=== PATIENT | male | born 1950 | race Caucasian/White ===

== ENCOUNTER 2020-08-16 08:20 | Outpatient (REF) | payer OTHER, SELFPAY ==
[2020-08-16 11:30] LABS: Glucose Urine UA NEG (NEG); Leukocyte Esterase Urine NEG (NEG); MANUAL DIFF FLAG NO; Nitrite Urine NEG (NEG); PH 5.5 (5.0-8.0); Specific Gravity - Urine 1.025 (1.005-1.025); Urine Blood NEG (NEG); Urine Ketones NEG (NEG); Urine Protein NEG (NEG-TRACE)
[2020-08-16 11:35] LABS: Appearance Urine CLEAR; Color Urine YELLOW
[2020-08-16 11:41] LABS: Basophils Absolute Auto 0.1 X10*3/uL (0.0-0.2); Basophils Percent Auto 1.3 % (0-2); Eosinophils Absolute Auto 0.1 X10*3/uL (0.0-0.4); Eosinophils Percent Auto 1.3 % (0-4); Hematocrit 43.2 % (42-52); Hemoglobin 13.9 g/dl (14.0-18.0); Imm Gran Abs Auto 0.02 X10*3/uL (0.00-0.03); Imm Gran Pct Auto 0.4 % (0.0-0.4); Lymphocytes Absolute Auto 1.6 X10*3/uL (1.2-4.9); Lymphocytes Percent Auto 29.6 % (20-40); Mean Corpuscular HGB Conc 32.2 g/dl (31.0-36.0); Mean Corpuscular Hemoglobin 32.7 pg (27.0-33.0); Mean Corpuscular Volume 101.6 fL (80-98); Mean Platelet Volume 11.7 fL (9.4-12.4); Monocytes Absolute Auto 0.5 X10*3/uL (0.1-1.2); Monocytes Percent Auto 8.8 % (2-11); Neutrophils Absolute Auto 3.2 X10*3/uL (2.0-8.3); Neutrophils Percent Auto 58.6 % (45-73); Platelet Count 185 X10*3/uL (160-400); Red Blood Count 4.25 X10*6/uL (4.60-5.80); Red Cell Distribution Width 12.2 % (11.0-16.0); White Blood Count 5.5 X10*3/uL (4.8-10.8)
[2020-08-16 11:51] LABS: Mucus Urine 2+ /LPF; RBC Urine 0-2 /HPF (0); WBC Urine 0-2 /HPF (0-4)
[2020-08-16 11:54] LABS: Alanine Aminotransferase 21 U/L (0-40); Albumin Level 4.9 g/dL (3.5-5.0); Alkaline Phosphatase 77 U/L (39-117); Anion Gap 15 (12-20); Aspartate Amino Transferase 24 U/L (5-37); Bilirubin Total 0.8 mg/dL (0.0-1.0); Blood Urea Nitrogen 13 mg/dL (9-16); Calcium 9.4 mg/dL (8.4-10.2); Carbon Dioxide 27 mmol/L (22-29); Chloride 103 mmol/L (96-108); Cholesterol 186 mg/dL; Estimated Glomerular Filt Rate > 60; Glucose Fasting 101 mg/dL (60-99); HDL Cholesterol 57 mg/dL; LDL Cholesterol Calculated 115 mg/dl; Potassium 4.5 mmol/l (3.3-5.1); Sodium 140 mmol/L (135-145); Total Protein 7.8 g/dL (6.5-8.0); Triglycerides 72 mg/dL
[2020-08-16 12:17] LABS: Prostate Specific Antigen 0.45 ng/mL (<0.05-4.0); Thyroid Stimulating Hormone 2.07 mIU/mL (0.32-4.0); Vitamin D 25-OH Total 44.8 ng/mL (>30)
== END 2020-08-16 08:21 | disposition home or self-care (01) ==
LOC: HO.HMGCLDS 08:20
PROVIDERS: PCP Internal Medicine; Visit Provider Internal Medicine
DX: Z00.00 Encounter for general adult medical examination without abnormal findings (principal); I10 Essential (primary) hypertension; I47.1 Supraventricular tachycardia; E78.00 Pure hypercholesterolemia, unspecified
CPT/HCPCS: 36415; 80053; 80061; 81001; 82306; 84153; 84443; 85025

== ENCOUNTER 2020-11-28 11:24 | Day surgery (SDC) | payer OTHER, SELFPAY ==
[2020-11-22 13:58] VITALS: BMI 25.9
--- NOTE | 2020-11-24 13:40 | P.CONAN_ITS ---
Documented by User: Jenna Lenka 11/24/20 13:48 HPI - Anesthesia Eval Consult details Narrative: 69yo M for Colonoscopy [facility] Past Medical History Medical History Arrhythmia Elevated cholesterol HTN (hypertension) Legally blind Macular degeneration Urinary frequency Surgical History Surgical History H/O colonoscopy Social History Social History Are you a primary care assistant to a significant other at home: No Do you presently have visiting nurse or other home services: No Smoking Status: Former smoker Smoked in Last 30 Days: No Smoking Quit Date: 1994 Use of substances other than those prescribed or required for medical reasons: No Have you been hit, kicked, punched, or otherwise hurt by someone within the past year? If so, by whom?: No Advance Directives Information Provided: No Recently lost weight without trying: No Meds Allergies Allergy/AdvReac Type Severity Reaction Status Date / Time No Known Allergies Allergy Unverified 07/07/20 14:35 Home Medications Medication Instructions Recorded Confirmed Type aspirin 81 mg PO DAILY 11/22/20 11/22/20 History atenolol 1 tab PO BEDTIME 11/22/20 11/22/20 History lisinopril 1 tab PO DAILY 11/22/20 11/22/20 History geiflsxm-cot-BK-lycopen-lutein 1 tab PO DAILY 11/22/20 11/22/20 History [Centrum Silver Men] pravastatin 1 tab PO BEDTIME 11/22/20 11/22/20 History Exam Exam Date and Time: November 24, 2020 1340 Height,Weight and Vital Signs: Height 5 ft 8 in Weight 77.564 kg Pertinent Lab Results Pertinent Lab Results: Laboratory Tests 08/16/20 08/16/20 08:30 08:30 WBC 5.5 Hgb 13.9 L Hct 43.2 Plt Count 185 Sodium 140 Potassium 4.5 Chloride 103 Carbon Dioxide 27 BUN 13 Creatinine 1.18 Assessment and Plan Assessment Anesthesia Assessment: Chart Reviewed Documented by User: Talha Joyner MD 11/28/20 13:04 [facility] Past Medical History Medical History Arrhythmia Elevated cholesterol HTN (hypertension) Legally blind Macular degeneration Urinary frequency Surgical History Surgical History H/O colonoscopy Social History Social History Are you a primary care assistant to a significant other at home: No Do you presently have visiting nurse or other home services: No Smoking Status: Former smoker Smoked in Last 30 Days: No Smoking Quit Date: 1994 Use of substances other than those prescribed or required for medical reasons: No Have you been hit, kicked, punched, or otherwise hurt by someone within the past year? If so, by whom?: No Advance Directives Information Provided: No Recently lost weight without trying: No Meds Allergies Allergy/AdvReac Type Severity Reaction Status Date / Time No Known Allergies Allergy Unverified 07/07/20 14:35 Home Medications Medication Instructions Recorded Confirmed Type aspirin 81 mg PO DAILY 11/22/20 11/22/20 History atenolol 1 tab PO BEDTIME 11/22/20 11/22/20 History lisinopril 1 tab PO DAILY 11/22/20 11/22/20 History efhoqqqo-rkv-UJ-lycopen-lutein 1 tab PO DAILY 11/22/20 11/22/20 History [Centrum Silver Men] pravastatin 1 tab PO BEDTIME 11/22/20 11/22/20 History Exam Airway Mallampati Class: II TM Dist: >3cm Neck ROM: Full Loose/Missing/Broken Teeth: No Heart: RRR Lungs: NL Assessment and Plan Assessment Anesthesia Assessment: Anesthesia Plan Discussed and Chart Reviewed Final Anesthetic Review NPO: Yes ASA Class: II Final Preanesthetic Review: No Changes in Pt Med Stat, Meds/Allgs Chart Reviewed, Consent Obtained/Reviewed and Anes Risks/Benef Reviewed Patient Risk: Intermediate Procedure Risk: Low Anesthetic Plan Anesthetic Plan: MAC: Disposition: Standard PACU
[2020-11-28 12:34] VITALS: BP 149/72; PULSE 72; RESP 16; TEMP 36.6; O2SAT 99
[2020-11-28] MEDS: Lactated Ringers 1,000 ML 100 ML IVCONT (12:39)
[2020-11-28 13:51] VITALS: BP 111/53; PULSE 75; RESP 20; TEMP 36.3; O2SAT 98
--- NOTE | 2020-11-28 13:53 | PM.OP ---
Brief Operative Note Date of Service: 11/28/20 Pre-op diagnosis: Screening Post-op diagnosis: other (Diverticulosis, Internal hemorrhoids) Procedure: Colonoscopy to the cecum Surgeon: Marques Baez Anesthesia: MAC Estimated blood loss (mL): 0 Pathology: none sent Condition: stable Disposition: PACU
[2020-11-28 14:06] VITALS: BP 122/63; PULSE 69; RESP 17; TEMP 36.3; O2SAT 98
--- NOTE | 2020-11-28 14:07 | OP_ITS ---
SURGEON: Marques Baez MD INDICATIONS: The patient presents for evaluation of colorectal cancer screening. Full consent has been obtained from him for this, including risks of bleeding and perforation. PREOPERATIVE DIAGNOSIS: Colorectal cancer screening. POSTOPERATIVE DIAGNOSIS: PROCEDURE PERFORMED: Colonoscopy to cecum. ESTIMATED BLOOD LOSS: COMPLICATIONS: ANESTHESIA: Monitored anesthesia care. ASSISTANTS: SPECIMENS: POSTOPERATIVE DIAGNOSES: Colorectal cancer screening, sigmoid diverticulosis and internal hemorrhoids. DESCRIPTION OF PROCEDURE: The patient was placed in the left lateral decubitus position. The digital rectal exam revealed no abnormalities. The Olympus video pediatric colonoscope was entered into the rectum and advanced easily to the cecum. Once in the cecum, I did identify normal-appearing cecal pouch with appendiceal orifice and a normal-appearing ileocecal valve. The entire cecum and ileocecal valve appeared normal. There was transillumination of light deep in the right lower quadrant. The scope was slowly withdrawn assessing all mucosal surfaces carefully. Preparation was excellent. I did not visualize any sign of polyps, colitis, nor angiodysplasia. There was a moderate amount of sigmoid diverticulosis. In the rectum, scope was retroflexed visualizing small internal hemorrhoids, but no other pathology. The rectal mucosa appeared normal. The scope was straightened out and withdrawn from the patient. He tolerated the procedure well and was returned to the recovery area in stable condition. IMPRESSION: 1. Diverticulosis. 2. Internal hemorrhoids. PLAN: Given the patient's negative colonoscopy, negative exam in 2010, and no family history of colon cancer, I do not think he will need any further screening colonoscopies in the future. He will otherwise see me on a p.r.n. basis. Marques Baez MD RMW/GONZALOL / [id number]
--- NOTE | 2020-11-28 14:28 | HO.POSTANES ---
Post Anesthesia Evaluation Post Anesthesia Evaluation Vital Signs: Vital Signs Temp Pulse Resp BP Pulse Ox 11/28/20 14:06 97.4 F 69 17 122/63 98 11/28/20 13:51 97.4 F 75 20 111/53 L 98 11/28/20 12:34 97.9 F 72 16 149/72 H 99 Anesthesia: TIVA Mental Status: Awake Pain Control: Satisfactory Nausea/Vomiting: None Hydration: Adequate Anesthesia-Related Issues: No Anes. Related Issues
== END 2020-11-28 14:31 | disposition home or self-care (01) ==
PROVIDERS: PCP Internal Medicine; Visit Provider Internal Medicine
PROC: 0DJD8ZZ Inspection of Lower Intestinal Tract, Via Natural or Artificial Opening Endoscopic (ICD-10-PCS; CPT 45378; principal; 2020-11-28 13:20)
DX: Z12.11 Encounter for screening for malignant neoplasm of colon (principal); K57.30 Diverticulosis of large intestine without perforation or abscess without bleeding; K64.8 Other hemorrhoids; I10 Essential (primary) hypertension; H54.8 Legal blindness, as defined in USA; Z79.899 Other long term (current) drug therapy
CPT/HCPCS: 45378

== ENCOUNTER 2021-09-05 09:35 | Outpatient (REF) | payer OTHER, SELFPAY ==
[2021-09-05 11:48] LABS: MANUAL DIFF FLAG NO
[2021-09-05 11:50] LABS: Appearance Urine CLEAR; Color Urine YELLOW; Glucose Urine UA NEG (NEG); Leukocyte Esterase Urine NEG (NEG); Nitrite Urine NEG (NEG); Urine Blood NEG (NEG); Urine Ketones NEG (NEG); Urine Protein NEG (NEG-TRACE)
[2021-09-05 11:52] LABS: Basophils Absolute Auto 0.1 X10*3/uL (0.0-0.2); Basophils Percent Auto 1.7 % (0-2); Eosinophils Absolute Auto 0.1 X10*3/uL (0.0-0.4); Eosinophils Percent Auto 1.7 % (0-4); Hematocrit 40.4 % (42.0-52.0); Hemoglobin 13.3 g/dl (14.0-18.0); Imm Gran Abs Auto 0.02 X10*3/uL (0.00-0.03); Imm Gran Pct Auto 0.4 % (0.0-0.4); Lymphocytes Absolute Auto 1.7 X10*3/uL (1.2-4.9); Lymphocytes Percent Auto 35.3 % (20-40); Mean Corpuscular HGB Conc 32.9 g/dl (31.0-36.0); Mean Corpuscular Hemoglobin 32.8 pg (27.0-33.0); Mean Corpuscular Volume 99.5 fL (80.0-98.0); Monocytes Absolute Auto 0.3 X10*3/uL (0.1-1.2); Monocytes Percent Auto 6.9 % (2-11); Neutrophils Absolute Auto 2.6 x10*3/uL (2.0-8.3); Platelet Count 149 X10*3/uL (160-400); Red Blood Count 4.06 X10*6/uL (4.60-5.80); Red Cell Distribution Width 12.1 % (11.0-16.0); White Blood Count 4.8 X10*3/uL (4.8-10.8)
[2021-09-05 12:15] LABS: Alanine Aminotransferase 25 U/L (0-40); Albumin Level 4.6 g/dL (3.5-5.0); Alkaline Phosphatase 76 U/L (39-117); Anion Gap 15 (12-20); Aspartate Amino Transferase 24 U/L (5-37); Bilirubin Total 0.7 mg/dL (0.0-1.0); Blood Urea Nitrogen 17 mg/dL (9-16); Calcium 9.5 mg/dL (8.4-10.2); Carbon Dioxide 26 mmol/L (22-29); Chloride 105 mmol/L (96-108); Cholesterol 192 mg/dL; Estimated Glomerular Filt Rate > 60; Glucose Fasting 90 mg/dL (60-99); HDL Cholesterol 51 mg/dL; LDL Cholesterol Calculated 126 mg/dl; Potassium 4.8 mmol/L (3.3-5.1); Sodium 141 mmol/L (135-145); Total Protein 7.7 g/dL (6.5-8.0); Triglycerides 76 mg/dL
[2021-09-05 12:38] LABS: PSA,Total (Free>4and<10) 0.47 ng/mL (0.00-4.00); Thyroid Stimulating Hormone 2.55 uIU/mL (0.32-4.0); Vitamin D 25-OH Total 43.4 ng/mL (>30)
[2021-09-05 12:39] LABS: Mucus Urine 1+ /LPF; RBC Urine 0 /HPF (0); WBC Urine 0-2 /HPF (0-4)
== END 2021-09-05 09:36 | disposition home or self-care (01) ==
LOC: HO.HMGCLDS 09:35
PROVIDERS: PCP Internal Medicine; Visit Provider Internal Medicine
DX: Z00.00 Encounter for general adult medical examination without abnormal findings (principal); Z12.5 Encounter for screening for malignant neoplasm of prostate; I10 Essential (primary) hypertension; I47.1 Supraventricular tachycardia; E78.00 Pure hypercholesterolemia, unspecified
CPT/HCPCS: 36415; 80053; 80061; 81001; 82306; 84153; 84443; 85025

== ENCOUNTER 2021-12-13 09:15 | Outpatient (REF) | payer OTHER, SELFPAY ==
[2021-12-13 11:13] LABS: MANUAL DIFF FLAG NO
[2021-12-13 11:16] LABS: Basophils Absolute Auto 0.1 X10*3/uL (0.0-0.2); Eosinophils Absolute Auto 0.1 X10*3/uL (0.0-0.4); Eosinophils Percent Auto 1.2 % (0-4); Hematocrit 42.1 % (42.0-52.0); Hemoglobin 13.6 g/dl (14.0-18.0); Imm Gran Abs Auto 0.02 X10*3/uL (0.00-0.03); Imm Gran Pct Auto 0.3 % (0.0-0.4); Lymphocytes Absolute Auto 1.9 X10*3/uL (1.2-4.9); Lymphocytes Percent Auto 31.9 % (20-40); Mean Corpuscular HGB Conc 32.3 g/dl (31.0-36.0); Mean Corpuscular Hemoglobin 32.6 pg (27.0-33.0); Mean Platelet Volume 11.1 fL (9.4-12.4); Monocytes Absolute Auto 0.4 X10*3/uL (0.1-1.2); Neutrophils Absolute Auto 3.5 x10*3/uL (2.0-8.3); Neutrophils Percent Auto 58.6 % (45-73); Platelet Count 192 X10*3/uL (160-400); Red Blood Count 4.17 X10*6/uL (4.60-5.80)
== END 2021-12-13 09:16 | disposition home or self-care (01) ==
LOC: HO.HMGCLDS 09:15
PROVIDERS: Visit Provider Internal Medicine
DX: Z00.00 Encounter for general adult medical examination without abnormal findings (principal); I10 Essential (primary) hypertension; I47.1 Supraventricular tachycardia
CPT/HCPCS: 36415; 85025

== ENCOUNTER 2022-04-02 16:14 | Emergency (ER) | payer OTHER, SELFPAY ==
--- NOTE | ~2022-04-02 | XR_ITS ---
EXAMINATION: XR CHEST CLINICAL INFORMATION: Chest pain COMPARISON: Chest x-ray 09/04/2009 TECHNIQUE: Frontal view of the chest was obtained. FINDINGS: Mild curvilinear streaky opacities at the right lung base compatible with mild subsegmental atelectasis or scarring. No airspace consolidation. No pleural effusion or pneumothorax. Cardiomediastinal silhouette is within normal limits as is the pulmonary vascularity. No acute osseous injury is identified. XR/XR chest 1V IMPRESSION: No acute pulmonary process.
[2022-04-02 16:24] VITALS: BP 192/84; BP 208/90; PULSE 68; PULSE 80; RESP 16; TEMP 37; O2SAT 97; BMI 27.3
--- NOTE | 2022-04-02 16:27 | ECG_ITS ---
Test Reason : PALPITATIONS Blood Pressure : / mmHG Vent. Rate : 059 BPM Atrial Rate : 059 BPM P-R Int : 172 ms QRS Dur : 086 ms QT Int : 444 ms P-R-T Axes : 025 -11 026 degrees QTc Int : 439 ms Sinus bradycardia Otherwise normal ECG When compared with ECG of 04-SEP-2009 18:23, Vent. rate has decreased BY 30 BPM Referred By: Zelda Foster Electronically Signed By:Amado Dumont
--- NOTE | 2022-04-02 16:34 | ED_ITS ---
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 He tells me that this did not feel like his typical episode of SVT, he tells me it felt different. He tells me he was just sitting down relaxing when this started, denies history of anxiety are any stressful situations at this time. When patient got to Urgent Care he was noted to have a low heart rate, and have an irregular and slow rate, fluctuating anywhere between 38-44 beats per minute. Because of this patient was advised to present to the emergency department. At this time patient is not complaining of any symptoms d enies chest pain, shortness of breath, nausea, vomiting, headache, dizziness, weakness, upper respiratory symptoms. No history of DVT or PE. No significant cardiac history. MD complaint: heart racing , skipped beats , palpitations and irregular heart beat Onset (ago): day(s) (1) Duration: constant Severity: moderate Context: occurred during rest Arrhythmia history: SVT Associated symptoms: denies other symptoms Related Data Home Medications Medication Instructions Recorded Confirmed aspirin 81 mg tablet 81 mg PO DAILY 11/22/20 11/22/20 atenolol 50 mg tablet 1 tab PO BEDTIME 11/22/20 11/22/20 qrgqophv-mmo-esgka acid 300 1 tab PO DAILY 11/22/20 11/22/20 mcg-lycopene 600 mcg-lutein 300 mcg tablet (Centrum Silver Men) pravastatin 20 mg tablet 1 tab PO BEDTIME 11/22/20 11/22/20 azithromycin 250 mg capsule mg PO 03/16/22 lisinopril 10 mg tablet 10 mg PO DAILY 03/16/22 Allergies Allergy/AdvReac Type Severity Reaction Status Date / Time No Known Allergies Allergy Unverified 03/16/22 09:20 Review of Systems Review of Systems: Constitutional : No Weight loss, No Fever, No Chills, No Fatigue, No Malaise ENT/Mouth : No sore throat, No Rhinorrhea Eyes: No Eye Pain, No Swelling, No Redness Cardiovascular : No Chest Pain, No SOB, No Dyspnea on Exertion, No Orthopnea, No Edema, No Palpitations Respiratory : No Cough, No Sputum, No Wheezing Gastrointestinal : No Nausea, No Vomiting, No Diarrhea, No Constipation, No abdominal Pain, No Hematochezia, No Melena Genitourinary : No Dysuria, No Urinary Frequency, No Hematuria, Musculoskeletal : No joint pain, No Myalgias, No Joint Swelling Skin : No Skin Lesions, No rash Neuro : No Weakness, No Numbness, No Dizziness, No Headache Psych : No Anxiety/Panic, No Depression All other systems reviewed and are negative Yes all other systems are reviewed and are negative [facility]LY [facility] Past Medical History Attestation statement: The following information was validated with the patient. Source: old records reviewed and nursing notes reviewed Medical History Arrhythmia Elevated cholesterol HTN (hypertension) Legally blind Macular degeneration Urinary frequency Surgical History H/O colonoscopy Social History Social History Are you a primary personal care aid to a significant other at home: No Do you presently have visiting nurse or other home services: No Smoked in Last 30 Days: No Use of substances other than those prescribed or required for medical reasons: No Advance Directives: No Advance Directives Information Provided: Yes Physical Exam Vital Signs: Vital Signs: Last Vital Signs Temp 98.6 F 04/02/22 16:24 Pulse 70 04/02/22 21:01 Resp 12 04/02/22 21:01 BP 129/87 04/02/22 21:01 Pulse Ox 94 04/02/22 21:01 O2 Del Method 04/02/22 21:01 BMI result Body Mass Index 27.3 Vital signs with the slightly elevated blood pressure. Appearance: Alert.? Oriented X3.? No acute distress.? Head: Normocephalic, atraumatic, no step-offs or deformities Eyes: Pupils equal, round and reactive to light.? ENT: Pharynx normal.? Neck: Normal inspection.? Neck supple.? CVS: Normal heart rate and irregular rhythm.? Pulses normal.? Respiratory: No respiratory distress.? Breath sounds normal.? Abdomen: Soft and nontender.? Skin: Skin warm and dry.? Normal skin color.? Normal skin turgor.? Extremities: No lower extremity edema.? No calf ttp. 5/5 strength to bilateral upper and lower extremities Back: No midline tenderness, no C-spine tenderness, full range of motion, no CVA tenderness bilaterally Neuro: Oriented X 3.? No motor deficit.? No sensory deficit. CN 2-12 intact. Ambulating w/ steady gait. Course Reevaluation(s) Reevaluation #1: CBC appears to be around patient's baseline. He is noted to have slightly low platelets however they have been this way in the past. Chemistry with no acute electrolyte abnormalities that require intervention at this time. Patient's BNP 196, troponin 5.8 EKG shows sinus bradycardia with no signs of acute ischemia. Patient still complaining of palpitations, an irregular heart rate, 2nd troponin will be obtained in 3 hours. D-dimer negative, unlikely PE. Chest x-ray with no acute pulmonary process is seen. Time: 18:03 Reevaluation #2: No significant findings on bladder scan. Post ambulatory ekg with sinus rythem, occasional PVCs. Patient feeling better. Discuss this case with my attending Dr Coleen Diallo who recommends that patient cut his atenolol dose in half due to bradycardia which seem to be symptomatic, and for him to follow-up with PCP/cardiology as soon as possible within the next 1-3 days. Patient tells me that he is feeling much better, no longer having chest pressure, shortness of breath, palpitations. At this time he is in normal sinus rhythm on the monitor while sleeping with a heart rate of 59. Saturating well on room air. Appears comfortable and in no acute distress. Plan at this time is to discharge patient home patient likely had symptomatic bradycardia, no signs of ACS, no longer experiencing symptoms, D-dimer negative unlikely PE. An chest x-ray was negative no signs of CHF. Patient will be discharged home with Cardiology and PCP follow-up. Comfortable discharge. Time: 22:38 MDM - Arrhythmia/Palpitations MDM Narrative Medical decision making narrative: [id number] 71-year-old male history of hypertension, SVT, legally blind presents to the emergency department via ambulance from Urgent Care with complaints of palpitations, at urgent care he was found to be bradycardic, with an irregular rhythm. No complaints at this time. Physical examination significant for an irregular rhythm on exam rate in the 60s. Lungs clear. Abdomen soft nontender nondistended. Negative Edi no lower extremity edema. Neuro exam nonfocal. Plan at this time is chest x-ray, troponin, D-dimer, basic labs, urine. Patient is on a teletypesetter monitor he noted to have bigeminy is upon his arrival with a rate in the 60s, 70s. Medical Records Attestation: I reviewed the patient's medical records. Lab Data Attestation: I reviewed the patient's lab results. Result diagrams: 04/02/22 17:25 04/02/22 20:54 Labs: Lab Results 04/02/22 04/02/22 04/02/22 Range/Units 16:32 17:23 17:25 WBC 8.2 (4.8-10.8) X10*3/uL RBC 3.89 L (4.60-5.80) X10*6/uL Hgb 12.8 L (14.0-18.0) g/dl Hct 38.1 L (42.0-52.0) % MCV 97.9 (80.0-98.0) fL MCH 32.9 (27.0-33.0) pg MCHC 33.6 (31.0-36.0) g/dl RDW 12.0 (11.0-16.0) % Plt Count 154 L (160-400) X10*3/uL MPV 11.2 (9.4-12.4) fL Immature Gran % (Auto) 0.4 (0.0-0.4) % Neut % (Auto) 82.3 H (45-73) % Lymph % (Auto) 11.7 L (20-40) % [place] % (Auto) 4.5 (2-11) % Eos % (Auto) 0.4 (0-4) % Baso % (Auto) 0.7 (0-2) % Lymph # (Auto) 1.0 L (1.2-4.9) X10*3/uL [place] # (Auto) 0.4 (0.1-1.2) X10*3/uL Eos # (Auto) 0.0 (0.0-0.4) X10*3/uL Baso # (Auto) 0.1 (0.0-0.2) X10*3/uL Abs Immat Gran (auto) 0.03 (0.00-0.03) X10*3/uL Absolute Neuts (auto) 6.8 (2.0-8.3) x10*3/uL Absolute Nucleated RBC 0.000 (0.0-0.012) X10*3/uL Nucleated RBC % (auto) 0.0 (0.0-0.2) /100WBC D-Dimer High Sensitivty NG/ML Sodium (135-145) mmol/L Potassium (3.3-5.1) mmol/L Chloride (96-108) mmol/L Carbon Dioxide (22-29) mmol/L Anion Gap (12-20) BUN (9-16) mg/dL Creatinine (0.5-1.4) mg/dL Estim Creat Clear Calc Estimated GFR Random Glucose (60-115) mg/dL Calcium (8.4-10.2) mg/dL Magnesium (1.6-2.6) mg/dL Total Bilirubin (0.0-1.0) mg/dL AST (5-37) U/L ALT (0-40) U/L Alkaline Phosphatase (39-117) U/L Troponin I High Sens (<3.5-35.0) ng/L B-Natriuretic Peptide (<100) pg/mL Total Protein (6.5-8.0) g/dL Albumin (3.5-5.0) g/dL Urine Color YELLOW Urine Appearance CLEAR Urine pH 6.0 (5.0-8.0) Ur Specific [place] 1.010 (1.005-1.025) Urine Protein NEG (NEG-TRACE) MG/DL Urine Glucose (UA) NEG (NEG) MG/DL Urine Ketones NEG (NEG) MG/DL Urine Blood NEG (NEG) Urine Nitrite NEG (NEG) Ur Leukocyte Esterase NEG (NEG) COVID-19 (RON) Negative (Negative) COVID-19 Clin Com See Note 04/02/22 04/02/22 04/02/22 Range/Units 17:25 17:25 17:25 WBC (4.8-10.8) X10*3/uL RBC (4.60-5.80) X10*6/uL Hgb (14.0-18.0) g/dl Hct (42.0-52.0) % MCV (80.0-98.0) fL MCH (27.0-33.0) pg MCHC (31.0-36.0) g/dl RDW (11.0-16.0) % Plt Count (160-400) X10*3/uL MPV (9.4-12.4) fL Immature Gran % (Auto) (0.0-0.4) % Neut % (Auto) (45-73) % Lymph % (Auto) (20-40) % [place] % (Auto) (2-11) % Eos % (Auto) (0-4) % Baso % (Auto) (0-2) % Lymph # (Auto) (1.2-4.9) X10*3/uL [place] # (Auto) (0.1-1.2) X10*3/uL Eos # (Auto) (0.0-0.4) X10*3/uL Baso # (Auto) (0.0-0.2) X10*3/uL Abs Immat Gran (auto) (0.00-0.03) X10*3/uL Absolute Neuts (auto) (2.0-8.3) x10*3/uL Absolute Nucleated RBC (0.0-0.012) X10*3/uL Nucleated RBC % (auto) (0.0-0.2) /100WBC D-Dimer High Sensitivty < 150 NG/ML Sodium 139 (135-145) mmol/L Potassium 4.3 (3.3-5.1) mmol/L Chloride 107 (96-108) mmol/L Carbon Dioxide 23 (22-29) mmol/L Anion Gap 13 (12-20) BUN 18 H (9-16) mg/dL Creatinine 1.15 (0.5-1.4) mg/dL Estim Creat Clear Calc 55.3 Estimated GFR > 60 Random Glucose 110 (60-115) mg/dL Calcium 9.3 (8.4-10.2) mg/dL Magnesium 2.4 (1.6-2.6) mg/dL Total Bilirubin 0.6 (0.0-1.0) mg/dL AST 21 (5-37) U/L ALT 17 (0-40) U/L Alkaline Phosphatase 94 D (39-117) U/L Troponin I High Sens 5.8 (<3.5-35.0) ng/L B-Natriuretic Peptide 196 H (<100) pg/mL Total Protein 7.2 (6.5-8.0) g/dL Albumin 4.3 (3.5-5.0) g/dL Urine Color Urine Appearance Urine pH (5.0-8.0) Ur Specific [place] (1.005-1.025) Urine Protein (NEG-TRACE) MG/DL Urine Glucose (UA) (NEG) MG/DL Urine Ketones (NEG) MG/DL Urine Blood (NEG) Urine Nitrite (NEG) Ur Leukocyte Esterase (NEG) COVID-19 (RON) (Negative) COVID-19 Clin Com 04/02/22 04/02/22 Range/Units 20:54 20:54 WBC (4.8-10.8) X10*3/uL RBC (4.60-5.80) X10*6/uL Hgb (14.0-18.0) g/dl Hct (42.0-52.0) % MCV (80.0-98.0) fL MCH (27.0-33.0) pg MCHC (31.0-36.0) g/dl RDW (11.0-16.0) % Plt Count (160-400) X10*3/uL MPV (9.4-12.4) fL Immature Gran % (Auto) (0.0-0.4) % Neut % (Auto) (45-73) % Lymph % (Auto) (20-40) % [place] % (Auto) (2-11) % Eos % (Auto) (0-4) % Baso % (Auto) (0-2) % Lymph # (Auto) (1.2-4.9) X10*3/uL [place] # (Auto) (0.1-1.2) X10*3/uL Eos # (Auto) (0.0-0.4) X10*3/uL Baso # (Auto) (0.0-0.2) X10*3/uL Abs Immat Gran (auto) (0.00-0.03) X10*3/uL Absolute Neuts (auto) (2.0-8.3) x10*3/uL Absolute Nucleated RBC (0.0-0.012) X10*3/uL Nucleated RBC % (auto) (0.0-0.2) /100WBC D-Dimer High Sensitivty NG/ML Sodium 139 (135-145) mmol/L Potassium 4.1 (3.3-5.1) mmol/L Chloride 107 (96-108) mmol/L Carbon Dioxide 24 (22-29) mmol/L Anion Gap 12 (12-20) BUN 16 (9-16) mg/dL Creatinine 1.15 (0.5-1.4) mg/dL Estim Creat Clear Calc 55.3 Estimated GFR > 60 Random Glucose 108 (60-115) mg/dL Calcium 9.5 (8.4-10.2) mg/dL Magnesium (1.6-2.6) mg/dL Total Bilirubin 0.6 (0.0-1.0) mg/dL AST 22 (5-37) U/L ALT 18 (0-40) U/L Alkaline Phosphatase 89 (39-117) U/L Troponin I High Sens 9.9 D (<3.5-35.0) ng/L B-Natriuretic Peptide (<100) pg/mL Total Protein 7.6 (6.5-8.0) g/dL Albumin 4.5 (3.5-5.0) g/dL Urine Color Urine Appearance Urine pH (5.0-8.0) Ur Specific [place] (1.005-1.025) Urine Protein (NEG-TRACE) MG/DL Urine Glucose (UA) (NEG) MG/DL Urine Ketones (NEG) MG/DL Urine Blood (NEG) Urine Nitrite (NEG) Ur Leukocyte Esterase (NEG) COVID-19 (RON) (Negative) COVID-19 Clin Com ECG Data Attestation: I personally reviewed and interpreted this ECG as follows: ECG interpretation date: 04/02/22 ECG interpretation time: 17:37 Prior ECG tracings: not available for review Interpretation: Ventricular rate of 59, TX normal, QRS normal, QT/QTC normal, EKG shows sinus bradycardia no ST elevations or inversions concerning for ischemia. No previous EKGs to compare with. Critical Care Time Critical Care Time Critical Care Time: No Discharge Plan Discharge Clinical Impression: Bradycardia, sinus, Palpitations, PVC (premature ventricular contraction) Patient Disposition: Home, Self-Care Instructions: Bradycardia (ED) Additional Instructions: Take your medications as prescribed. If you were prescribed antibiotics today, it is important that you take your medication to their entirety, do not skip any doses, do not finish them early. Follow-up with your primary care provider this week. Return to the emergency department with new or worsening symptoms. Such as fevers, chills, chest pain, shortness of breath, nausea, vomiting, dizziness, headache, vision changes, lethargy In case of emergency call 911 I recommend that you take 25 mg of atenolol instead of 50mg, cut the tablet in half. Please follow-up with your PCP and Cardiology within the next week or sooner if possible. Return with new or worsening symptoms. Today in the emergency department your labs, imaging and EKG were reassuring. Feel better! Prescriptions: No Action aspirin 81 mg Tablet 81 mg PO DAILY pravastatin 20 mg tablet 1 tab PO BEDTIME atenolol 50 mg tablet 1 tab PO BEDTIME Centrum Silver Men 300-600-300 mcg Tablet 1 tab PO DAILY lisinopril 10 mg tablet 10 mg PO DAILY azithromycin 250 mg capsule PO Referrals: Marques Hlil DO [Primary Care Provider] - 2 days Amado Dumont MD [Physician] - 1 week
[2022-04-02 16:41] LABS: Appearance Urine CLEAR; Color Urine YELLOW; Glucose Urine UA NEG (NEG); Leukocyte Esterase Urine NEG (NEG); Nitrite Urine NEG (NEG); Urine Blood NEG (NEG); Urine Ketones NEG (NEG); Urine Protein NEG (NEG-TRACE)
[2022-04-02 17:20] VITALS: BP 144/77; PULSE 60; RESP 14
[2022-04-02 17:30] LABS: MANUAL DIFF FLAG NO
[2022-04-02 17:35] LABS: Basophils Absolute Auto 0.1 X10*3/uL (0.0-0.2); Basophils Percent Auto 0.7 % (0-2); Eosinophils Percent Auto 0.4 % (0-4); Hematocrit 38.1 % (42.0-52.0); Hemoglobin 12.8 g/dl (14.0-18.0); Imm Gran Abs Auto 0.03 X10*3/uL (0.00-0.03); Imm Gran Pct Auto 0.4 % (0.0-0.4); Lymphocytes Percent Auto 11.7 % (20-40); Mean Corpuscular HGB Conc 33.6 g/dl (31.0-36.0); Mean Corpuscular Hemoglobin 32.9 pg (27.0-33.0); Mean Corpuscular Volume 97.9 fL (80.0-98.0); Mean Platelet Volume 11.2 fL (9.4-12.4); Monocytes Absolute Auto 0.4 X10*3/uL (0.1-1.2); Monocytes Percent Auto 4.5 % (2-11); Neutrophils Absolute Auto 6.8 x10*3/uL (2.0-8.3); Neutrophils Percent Auto 82.3 % (45-73); Platelet Count 154 X10*3/uL (160-400); Red Blood Count 3.89 X10*6/uL (4.60-5.80); White Blood Count 8.2 X10*3/uL (4.8-10.8)
[2022-04-02 17:43] LABS: D Dimer High Sensitivity < 150 NG/ML
[2022-04-02 17:50] LABS: Alanine Aminotransferase 17 U/L (0-40); Albumin Level 4.3 g/dL (3.5-5.0); Alkaline Phosphatase 94 U/L (39-117); Anion Gap 13 (12-20); Aspartate Amino Transferase 21 U/L (5-37); Bilirubin Total 0.6 mg/dL (0.0-1.0); Blood Urea Nitrogen 18 mg/dL (9-16); Calcium 9.3 mg/dL (8.4-10.2); Carbon Dioxide 23 mmol/L (22-29); Chloride 107 mmol/L (96-108); Creatinine Clr Calc Pharmacy 55.3; Estimated Glomerular Filt Rate > 60; Glucose Random 110 mg/dL (60-115); Magnesium 2.4 mg/dL (1.6-2.6); Potassium 4.3 mmol/L (3.3-5.1); Sodium 139 mmol/L (135-145); Total Protein 7.2 g/dL (6.5-8.0)
[2022-04-02 17:54] LABS: COVID-19 Test Negative (Negative); IDNOW Serial# 16C4AD1C
[2022-04-02 17:57] LABS: B Type Natriuretic Peptide 196 pg/mL (<100); Troponin-I High Sensitivity 5.8 ng/L (<3.5-35.0)
[2022-04-02 18:59] VITALS: BP 185/78
[2022-04-02] MEDS: Furosemide 20 MG/2 ML VIAL 10 MG IVPUSH (18:59)
--- NOTE | 2022-04-02 20:53 | ECG_ITS ---
Test Reason : REPEAT PALPITATIONS Blood Pressure : / mmHG Vent. Rate : 061 BPM Atrial Rate : 061 BPM P-R Int : 170 ms QRS Dur : 088 ms QT Int : 446 ms P-R-T Axes : 044 012 029 degrees QTc Int : 448 ms Sinus rhythm with occasional Premature ventricular complexes Otherwise normal ECG When compared with ECG of 02-APR-2022 17:24, Premature ventricular complexes are now Present Referred By: Zelda Foster Electronically Signed By:Amado Dumont
[2022-04-02 20:57] VITALS: BP 164/85; BP 183/89; PULSE 55; PULSE 68
[2022-04-02 21:00] VITALS: BP 150/115; PULSE 65
[2022-04-02 21:01] VITALS: BP 129/87; PULSE 70; RESP 12; O2SAT 94
[2022-04-02 21:13] LABS: Alanine Aminotransferase 18 U/L (0-40); Albumin Level 4.5 g/dL (3.5-5.0); Alkaline Phosphatase 89 U/L (39-117); Anion Gap 12 (12-20); Aspartate Amino Transferase 22 U/L (5-37); Bilirubin Total 0.6 mg/dL (0.0-1.0); Blood Urea Nitrogen 16 mg/dL (9-16); Calcium 9.5 mg/dL (8.4-10.2); Carbon Dioxide 24 mmol/L (22-29); Chloride 107 mmol/L (96-108); Creatinine Clr Calc Pharmacy 55.3; Estimated Glomerular Filt Rate > 60; Glucose Random 108 mg/dL (60-115); Potassium 4.1 mmol/L (3.3-5.1); Sodium 139 mmol/L (135-145); Total Protein 7.6 g/dL (6.5-8.0)
[2022-04-02 21:21] LABS: Troponin-I High Sensitivity 9.9 ng/L (<3.5-35.0)
== END 2022-04-02 23:15 | disposition home or self-care (01) ==
PROVIDERS: Physician Assistant; Emergency Provider Emergency Medicine; PCP Internal Medicine
DX: I49.3 Ventricular premature depolarization (principal); R00.2 Palpitations; R00.1 Bradycardia, unspecified; I10 Essential (primary) hypertension; H54.8 Legal blindness, as defined in USA; Z79.899 Other long term (current) drug therapy; Z20.822 Contact with and (suspected) exposure to COVID-19
CPT/HCPCS: 36415; 71045; 80053; 81003; 83735; 83880; 84484; 85025; 85379; 87635; 93005; 96374; 99283; 99284; 99285; J1940

== ENCOUNTER → 2022-07-02 08:41 | Outpatient (REF) | payer OTHER, SELFPAY ==
--- NOTE | ~2022-07-02 | NM_ITS ---
Myocardial perfusion study Indication: PVCs to evaluate for myocardial ischemia Technique: The patient was brought in for a Lexiscan perfusion study on 07/02/2022. Patient performed low-level exercise and was injected 0.4 mg of Lexiscan intravenously. Within a minute of injection, 30 mCi of sestamibi was given intravenously. Images were obtained using the SPECT gamma camera interlaced with the gating device. Images were obtained in supine position. Resting perfusion study was performed on 07/06/2022. Patient was administered 30 mCi of sestamibi intravenously at rest. Images were then obtained in supine position. Images obtained with and without CT attenuation. Total DLP 89 mGy-cm. Images were processed with the software and compared side to side in short axis, horizontal long axis and vertical long axis views. Findings: The stress perfusion study showed non attenuated images show normal uptake of radiotracer in all segments of LV myocardium. Attenuated corrected images suboptimal due to subdiaphragmatic intense uptake in the inferior wall uptake.. The gated study shows normal LV systolic function with calculated LVEF of 61%. LV cavity is normal in size. The gated study shows normal systolic wall thickening and contraction of segments. Resting study shows nontender images show normal uptake of radiotracer in all segments of LV myocardium. Gating at rest reveals normal systolic wall motion with ejection fraction at 54%. The findings are consistent with nontransmural images show normal uptake of radiotracer in all normal myocardial perfusion. NM/NM cardiolite stress test Impression: 1. Myocardial perfusion imaging study shows likely normal myocardial perfusion 2. Gated LVEF is 61% 3. Transient ischemic dilatation not present EKG is nondiagnostic for ischemia
--- NOTE | 2022-07-02 08:46 | CA_ITS ---
Acquisition Time: 2022-07-02 09:50:29 Total Exercise Time: 00:02:00 Test Indications: CP, SVT Medications: SEE CHART Protocol: LEXISCAN Max HR: 089 BPM 60% of Pred: 147 BPM Max BP: 144/072 mmHG Max Work Load: 1.0 METS Pharmacological stress test with Lexiscan injection, while sitting and kicking his legs, without anginal symptoms, without arrythmia, with normotensive response to injection, with nondiagnostic EKG for ischemia. Nuclear images pending. Test reviewed with Dr Menjivar Referred By: Hector Trejo Overread By: ELYSSA MUÑOZ
== END ==
LOC: HO.CARD 08:41
PROVIDERS: PCP Internal Medicine; Visit Provider Internal Medicine
DX: I49.3 Ventricular premature depolarization (principal)
CPT/HCPCS: 78452; 93017; A9500; J0280; J2785

== ENCOUNTER → 2022-07-10 08:49 | Outpatient (REF) | payer OTHER, SELFPAY ==
--- NOTE | 2022-07-10 09:03 | HM_ITS ---
Conclusion: 1. Patient was monitored for total period of 2 days and 23 hours 2. Baseline was normal sinus with average heart of 60 beats per minute and minimal heart rate 40 beats per minute 3. No significant pauses noted 4. Frequent sinus bradycardia with 47% of time heart rate below 60 beats per minute 5. Total of 27,332 PVCs accounting for 10.3% of total beats, accounting for frequent PVCs 6. Total of 2700 PACs accounting for 1% of total beats account for frequent PACs 7. No patient reported events MTDD
== END ==
LOC: HO.CARD 08:49
PROVIDERS: PCP Internal Medicine; Visit Provider Internal Medicine
DX: I49.3 Ventricular premature depolarization (principal)
CPT/HCPCS: 93242

== ENCOUNTER → 2022-07-18 08:02 | Outpatient (REF) | payer OTHER, SELFPAY ==
--- NOTE | 2022-07-18 08:07 | CA_ITS ---
Transthoracic Echocardiogram Patient (Last, First, Middle): Fortino Morejon E Gender: Male Date of : 1950 Age: 71 Procedure Date: 07/18/2022 Procedure Type: Transthoracic Echocardiogram Location: OP Height: 167.64 cm Weight: 79.38 kg BSA: 1.89 m2 Heart Rate: bpm BP: 122 / 60 mmHg Representative: Referring MD: Hector Trejo MD Symptoms: I10 - Essential (primary) hypertension Study Quality: Good ECG Rhythm: Sinus Conclusions: - 1. Normal LV systolic and diastolic function with upper limits of normal LV wall thickness 2. Mild left atrial enlargement 3. Mild aortic and mitral regurgitation 4. Normal RV systolic pressure 5. No gross pericardial effusion Findings Left Ventricle Normal left ventricular size, thickness, and systolic function. The visually estimated ejection fraction is between 60-65%. Spectral Doppler is indicative of a normal filling pattern. Peak GLS is -18.6%, within normal limits. Right Ventricle Normal right ventricular cavity size and systolic function. Atria The left atrium is mildly dilated. There is lipomatous hypertrophy of the interatrial septum. There is no evidence of interatrial shunt. The right atrium is normal in size. Aortic Valve Normal aortic valve structure and function. There is no aortic valve stenosis. There is mild aortic valve regurgitation. Mitral Valve Normal mitral valve structure and function. There is mild mitral valve regurgitation. There is no mitral valve stenosis. Pulmonic Valve The pulmonic valve is likely normal. There is trace to mild pulmonic valve regurgitation. Tricuspid Valve Normal tricuspid valve structure. There is mild tricuspid valve regurgitation. The right ventricular systolic pressure is normal. The right ventricular systolic pressure is 17 mmHg. Normal right atrial pressure. There is no evidence of pulmonary hypertension. Great Vessels All visible segments of the aorta are normal in size. The visualized portions of the pulmonary artery and branches are normal. Venous The inferior vena cava is normal in size and collapses greater than 50% with inspiration. Pericardium/Pleural There is no evidence of pericardial effusion. Prior Study Comparison No prior study in the last 5 years for comparison Measurements 2D Linear Measurements IVSd: 1.10 0.6-0.9/0.6-1.0 cm LVIDd: 4.43 3.9-5.3/4.2-5.9 cm LVIDd Index: 2.34 2.4-3.2/2.2-3.1 cm/m2 LVIDs: 2.57 2.0-3.6 cm LVPWd: 1.10 0.7-1.1 cm Ao Root: 3.50 2.1-3.5 cm LA Diam: 3.80 2.7-3.8/3.0-4.0 cm LAIDs Index: 2.01 1.5-2.3 cm/m2 LV Mass: 258.71 67-162/88-224 g LV Mass Index: 136.89 43-95/49-115 g/m2 LVOT Diam: 2.20 3.0+(-)1.3 cm Mitral Valve MV Pk E: 0.72 MV PK A: 0.54 MV Decel Time: 212.00 E/A: 1.30 E'Lateral: 12.40 E'Medial: 7.72 E/E' Med: 9.30 E/E' Lat: 5.80 PHT: 62.00 MVA PHT: 3.55 Decel Nelson: 3.38 Aortic Valve AoV Pk Salvatore: 1.34 AoV Mn Salvatore: 0.84 AoV VTI: 0.36 AoV Pk Grad: 7.00 Aov Mn Grad: 3.00 FARIBA Cont.VTI: 2.83 LVOT LVOT Pk Salvatore: 1.02 LVOT Mn Salvatore: 0.61 LVOT VTI: 0.27 LVOT Pk Grad: 4.00 LVOT Mn Grad: 2.00 LVOT Diam: 2.20 LVOT Area: 3.80 Diastolic Function MV Pk E: 0.72 MV Pk A: 0.54 E/A: 1.30 E'Medial: 7.72 E/E' Med: 9.30 E' Laterial: 12.40 E/E' Lat: 5.80 Right Ventricle TAPSE (mm): 26.00 TVS' Salvatore: 10.00 Tricuspid Valve TR Pk Salvatore: 1.90 TR Pk Grad: 14.00 RA Press: 3.00 RVSP: 17.00 Great Vessels Aorta Ao Root-2D: 3.50 2.0-3.7 cm Ao Asc: 3.20 2.1-3.4 cm Pulmonary Valve PV Pk Salvatore: 0.94 Peak PV Grad: 4.00 Updated in Other Vendor System with Status of Final Mac Menjivar MD electronically signed on 07/18/2022 10:27:47 AM with status of Final
== END ==
LOC: HO.CARD 08:02
PROVIDERS: PCP Internal Medicine; Visit Provider Internal Medicine
DX: R07.9 Chest pain, unspecified (principal); I10 Essential (primary) hypertension; I49.3 Ventricular premature depolarization; R00.2 Palpitations
CPT/HCPCS: 93306; 93356

== ENCOUNTER 2022-09-29 09:45 | Outpatient (REF) | payer OTHER, SELFPAY ==
[2022-09-29 11:14] LABS: MANUAL DIFF FLAG NO
[2022-09-29 11:20] LABS: Basophils Absolute Auto 0.1 X10*3/uL (0.0-0.2); Basophils Percent Auto 1.2 % (0-2); Eosinophils Absolute Auto 0.1 X10*3/uL (0.0-0.4); Eosinophils Percent Auto 1.2 % (0-4); Hematocrit 42.7 % (42.0-52.0); Hemoglobin 13.9 g/dl (14.0-18.0); Imm Gran Abs Auto 0.03 X10*3/uL (0.00-0.03); Imm Gran Pct Auto 0.6 % (0.0-0.4); Lymphocytes Absolute Auto 1.4 X10*3/uL (1.2-4.9); Mean Corpuscular HGB Conc 32.6 g/dl (31.0-36.0); Mean Corpuscular Hemoglobin 32.3 pg (27.0-33.0); Mean Corpuscular Volume 99.1 fL (80.0-98.0); Monocytes Absolute Auto 0.4 X10*3/uL (0.1-1.2); Monocytes Percent Auto 8.1 % (2-11); Neutrophils Absolute Auto 3.2 x10*3/uL (2.0-8.3); Neutrophils Percent Auto 61.9 % (45-73); Platelet Count 188 X10*3/uL (160-400); Red Blood Count 4.31 X10*6/uL (4.60-5.80); Red Cell Distribution Width 11.9 % (11.0-16.0); White Blood Count 5.2 X10*3/uL (4.8-10.8)
[2022-09-29 12:11] LABS: Alanine Aminotransferase 20 U/L (0-40); Albumin Level 4.6 g/dL (3.5-5.0); Alkaline Phosphatase 82 U/L (39-117); Anion Gap 14 (12-20); Aspartate Amino Transferase 22 U/L (5-37); Bilirubin Total 0.6 mg/dL (0.0-1.0); Blood Urea Nitrogen 18 mg/dL (9-16); Calcium 9.4 mg/dL (8.4-10.2); Carbon Dioxide 26 mmol/L (22-29); Chloride 105 mmol/L (96-108); Cholesterol 204 mg/dL; Estimated Glomerular Filt Rate 60; Glucose Random 88 mg/dL (60-115); HDL Cholesterol 53 mg/dL; LDL Cholesterol Calculated 139 mg/dl; PSA,Total (Free>4and<10) 0.55 ng/mL (0.00-4.00); Potassium 4.9 mmol/L (3.3-5.1); Sodium 140 mmol/L (135-145); Thyroid Stimulating Hormone 1.93 uIU/mL (0.32-4.0); Total Protein 7.5 g/dL (6.5-8.0); Triglycerides 62 mg/dL; Vitamin D 25-OH Total 47.7 ng/mL (>30)
== END 2022-09-29 09:46 | disposition home or self-care (01) ==
LOC: HO.HMGCLDS 09:45
PROVIDERS: PCP Internal Medicine; Visit Provider Internal Medicine
DX: Z00.00 Encounter for general adult medical examination without abnormal findings (principal); I10 Essential (primary) hypertension; E78.00 Pure hypercholesterolemia, unspecified; Z12.5 Encounter for screening for malignant neoplasm of prostate
CPT/HCPCS: 36415; 80053; 80061; 82306; 84153; 84443; 85025

== ENCOUNTER → 2022-11-01 13:19 | Outpatient (BNVA) | payer OTHER, SELFPAY | PROVIDERS: PCP Internal Medicine; Referring Provider Internal Medicine; Visit Provider Internal Medicine | DX: Z13.89 Encounter for screening for other disorder (principal) ==

== ENCOUNTER 2023-08-21 10:00 | Outpatient (REF) | payer OTHER, SELFPAY ==
[2023-08-21 13:24] LABS: MANUAL DIFF FLAG NO
[2023-08-21 13:36] LABS: Basophils Absolute Auto 0.1 X10*3/uL (0.0-0.2); Basophils Percent Auto 1.5 % (0-2); Eosinophils Absolute Auto 0.1 X10*3/uL (0.0-0.4); Hematocrit 39.4 % (42.0-52.0); Imm Gran Abs Auto 0.02 X10*3/uL (0.00-0.03); Imm Gran Pct Auto 0.4 % (0.0-0.4); Lymphocytes Absolute Auto 1.4 X10*3/uL (1.2-4.9); Lymphocytes Percent Auto 26.3 % (20-40); Mean Corpuscular Hemoglobin 33.8 pg (27.0-33.0); Mean Corpuscular Volume 102.3 fL (80.0-98.0); Mean Platelet Volume 11.5 fL (9.4-12.4); Monocytes Absolute Auto 0.4 X10*3/uL (0.1-1.2); Monocytes Percent Auto 7.5 % (2-11); Neutrophils Absolute Auto 3.3 x10*3/uL (2.0-8.3); Neutrophils Percent Auto 63.3 % (45-73); Platelet Count 189 X10*3/uL (160-400); Red Blood Count 3.85 X10*6/uL (4.60-5.80); Red Cell Distribution Width 12.1 % (11.0-16.0); White Blood Count 5.2 X10*3/uL (4.8-10.8)
[2023-08-21 13:59] LABS: Alanine Aminotransferase 30 U/L (0-40); Albumin Level 4.4 g/dL (3.5-5.0); Alkaline Phosphatase 85 U/L (39-117); Anion Gap 13 (12-20); Aspartate Amino Transferase 27 U/L (5-37); Bilirubin Total 0.6 mg/dL (0.0-1.0); Blood Urea Nitrogen 19 mg/dL (9-16); Calcium 9.6 mg/dL (8.4-10.2); Carbon Dioxide 25 mmol/L (22-29); Chloride 106 mmol/L (96-108); Cholesterol 161 mg/dL (<200); Estimated Glomerular Filt Rate > 60; Glucose Fasting 99 mg/dL (60-99); HDL Cholesterol 53 mg/dL (>40); LDL Cholesterol Calculated 97 mg/dL (<100); Sodium 139 mmol/L (135-145); Total Protein 7.6 g/dL (6.5-8.0); Triglycerides 55 mg/dL (<150)
[2023-08-21 14:03] LABS: Thyroid Stimulating Hormone 1.62 uIU/mL (0.32-4.0)
[2023-08-21 14:06] LABS: PSA,Total (Free>4and<10) 0.46 ng/mL (0.00-4.00)
== END 2023-08-21 10:01 | disposition home or self-care (01) ==
LOC: HO.HMGCLDS 10:00
PROVIDERS: PCP Internal Medicine; Visit Provider Internal Medicine
DX: Z12.5 Encounter for screening for malignant neoplasm of prostate (principal); I10 Essential (primary) hypertension; I47.10 Supraventricular tachycardia, unspecified; E78.00 Pure hypercholesterolemia, unspecified
CPT/HCPCS: 36415; 80053; 80061; 84153; 84443; 85025

== ENCOUNTER 2023-09-24 13:47 | Outpatient (AMB) | payer OTHER, SELFPAY ==
[2023-09-24 13:55] VITALS: BP 178/72; PULSE 61; BMI 25.5
--- NOTE | 2023-09-24 13:55 | MHC.OFFVIS ---
Intake Vital Signs 09/24/23 13:55 Height 5 ft 8 in Weight 168 lb BMI 25.5 BP 178/72 H Blood Pressure Location Lt brachial Position Sitting Pulse 61 Intake Visit Reasons: Umbilical hernia Intake Note: Patient is seen in office for evaluation and treatment of an umbilical hernia. 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 Over the last few weeks , is increasing size, become much more symptomatic. Patient is otherwise tolerating his diet. Having regular bowel habits. He has no other GI issues or complaints. Chart was reviewed patient evaluated. Patient is legally blind since youth. [facility] Medical History Arrhythmia Elevated cholesterol HTN (hypertension) Legally blind Macular degeneration Urinary frequency Surgical History H/O colonoscopy Family History Father No problems noted. Mother No problems noted. Social History Are you a primary acute care occupational therapist to a significant other at home: No Do you presently have visiting nurse or other home services: No Alcohol intake: never Patient Tobacco Use Status: Never used Tobacco Physical Exam Vital Signs: Last Vital Signs Pulse 61 09/24/23 13:55 BP 178/72 H 09/24/23 13:55 BMI result Body Mass Index 25.5 Eyes Other: Patient can see shadows. Chest Other: Chest breath sounds bilaterally, HS 1 in 2 GI Other: Patient was examined both supine and standing with Valsalva. Abdomen soft benign. Left groin negative. Genitalia within normal limits. Very large right inguinal hernia. Irreducible Assessment & Plan Assessment & Plan (1) Incarcerated right inguinal hernia: Code(s): K40.30 - Unilateral inguinal hernia, with obstruction, without gangrene, not specified as recurrent Plan Risks, benefits, alternatives of open repair of incarcerated inguinal hernia with mesh were reviewed with the patient which included but not limited to bleeding, infection, recurrence, numbness, pain, scarring the patient was to proceed. All questions were answered. Arrangements will be made for this Coding Level of Care Code New Pt Level 5 (33562) Diagnoses Incarcerated right inguinal hernia K40.30
== END 2023-09-24 14:38 | disposition home or self-care (01) ==
PROVIDERS: PCP Internal Medicine; Referring Provider Internal Medicine; Visit Provider Surgery
DX: K40.30 Unilateral inguinal hernia, with obstruction, without gangrene, not specified as recurrent (principal)
CPT/HCPCS: 99204

== ENCOUNTER → 2023-09-24 13:47 | Outpatient (BNVA) | payer OTHER, SELFPAY | PROVIDERS: PCP Internal Medicine; Referring Provider Internal Medicine; Visit Provider Surgery ==

== ENCOUNTER 2023-09-27 08:22 | Day surgery (SDC) | payer OTHER, SELFPAY ==
--- NOTE | 2023-09-26 23:06 | MHC.SHP ---
Pre-Procedural Eval Section A Date of Service: 09/26/23 The patient is an INPATIENT: No Changes since office visit: No Cold of Flu in the past 2 weeks, No New Medical Problems, No Changes in Medication and No Patient answered all questions The History & Physical has been completed within 30 days and I have reviewed it.: Yes Section B Chief Complaint: Unilateral inguinal hernia, with obstruction, with Allergies: Allergies Allergy/AdvReac Type Severity Reaction Status Date / Time No Known Allergies Allergy Verified 09/24/23 14:18 Plan I have reviewed the history and physical and performed a pertinent physical examination on my patient. No changes have occurred unless specified. Time Spent With Patient Time: Total time managing care of this patient today ____ minutes.
[2023-09-27 09:41] VITALS: BP 161/75; PULSE 59; RESP 16; TEMP 36.3; O2SAT 96; BMI 25.5
--- NOTE | 2023-09-27 10:30 | P.CONAN_ITS ---
Documented by User: Jenna Og NP 09/26/23 10:45 HPI - Anesthesia Eval Consult details Narrative: 72yo M for Right Open Incarcerate Right Inguinal Hernia Legally blind PMFSH Active Problems Active Problems: All Active Problems (Updated 11/01/22 @ 13:46 by Hector Trejo MD) Incarcerated right inguinal hernia (Acute) Essential hypertension (Acute) PVC (premature ventricular contraction) (Acute) Bradycardia, sinus (Acute) Past Medical History Medical History Arrhythmia Elevated cholesterol HTN (hypertension) Legally blind Macular degeneration Urinary frequency Family History Family History Father No problems noted. Mother No problems noted. Surgical History Surgical History H/O colonoscopy Social History Social History Are you a primary rn progressive care to a significant other at home: No Do you presently have visiting nurse or other home services: No Alcohol intake: never Patient Tobacco Use Status: Former Tobacco user Use of substances other than those prescribed or required for medical reasons: No Are you DNR?: No Advance Directives: No Advance Directives Information Provided: Yes Advance Directives on File: No Meds Allergies Allergy/AdvReac Type Severity Reaction Status Date / Time No Known Allergies Allergy Verified 09/24/23 14:18 Home Medications Medication Instructions Recorded Confirmed Last Taken Type aspirin 81 mg tablet 81 mg PO DAILY 11/22/20 11/01/22 Unknown History ktjwargc-jt-rlyqt 300 mcg-K 60 1 tab PO DAILY 11/22/20 11/01/22 Unknown History mcg-lycop 600 mcg-lutein 300 mcg tablet (Centrum Silver Men) pravastatin 20 mg tablet 20 mg PO BEDTIME 06/06/22 11/01/22 Unknown History atenolol 50 mg tablet 50 mg PO BEDTIME 11/01/22 11/01/22 Unknown History lisinopril 30 mg tablet 30 mg PO DAILY 09/24/23 Unknown History Exam Pertinent Lab Results Pertinent Lab Results: Laboratory Tests 08/21/23 10:17 WBC 5.2 Hgb 13.0 L Hct 39.4 L Plt Count 189 Sodium 139 Potassium 5.0 Chloride 106 Carbon Dioxide 25 BUN 19 H Creatinine 1.08 Narrative Narrative: Per 10/2022 Cardiology Office Visit Notes: Last EKG from March shows sinus rhythm at 61/Min and PVC. Echocardiogram shows LVEF 60-65%. Mild mitral and aortic regurgitation mild left atrial enlargement. Myocardial perfusion imaging study shows likely normal perfusion. In the Holter, underlying sinus rhythm at 60/Min. Frequent PVCs with a burden of 10%. Some PACs. There is a tendency for bradycardia. Assessment and Plan Assessment Anesthesia Assessment: Chart Reviewed Documented by User: Marisela Kyle DO 09/27/23 10:36 PMFSH Past Medical History Medical History Arrhythmia Elevated cholesterol HTN (hypertension) Legally blind Macular degeneration Urinary frequency Family History Family History Father No problems noted. Mother No problems noted. Family history of problems with anesthesia: No Surgical History Surgical History H/O colonoscopy History of Problems with Anesthesia: No Social History Social History Are you a primary rn progressive care to a significant other at home: No Do you presently have visiting nurse or other home services: No Alcohol intake: never Patient Tobacco Use Status: Former Tobacco user Use of substances other than those prescribed or required for medical reasons: No Are you DNR?: No Advance Directives: No Advance Directives Information Provided: Yes Advance Directives on File: No Meds Allergies Allergy/AdvReac Type Severity Reaction Status Date / Time No Known Allergies Allergy Verified 09/24/23 14:18 Home Medications Medication Instructions Recorded Confirmed Last Taken Type aspirin 81 mg tablet 81 mg PO DAILY 11/22/20 11/01/22 Unknown History pyedhjtm-dr-ejpet 300 mcg-K 60 1 tab PO DAILY 11/22/20 11/01/22 Unknown History mcg-lycop 600 mcg-lutein 300 mcg tablet (Centrum Silver Men) pravastatin 20 mg tablet 20 mg PO BEDTIME 06/06/22 11/01/22 Unknown History atenolol 50 mg tablet 50 mg PO BEDTIME 11/01/22 11/01/22 Unknown History lisinopril 30 mg tablet 30 mg PO DAILY 09/24/23 Unknown History Exam Exam Date and Time: September 27, 2023 1030 Height,Weight and Vital Signs: Height 5 ft 8 in Weight 76.204 kg Vital Signs Temperature 97.3 F 09/27/23 09:41 Pulse Rate 59 09/27/23 09:41 Respiratory Rate 16 09/27/23 09:41 Blood Pressure 161/75 H 09/27/23 09:41 Pulse Oximetry 96 09/27/23 09:41 Oxygen Delivery Method Room Air 09/27/23 09:41 Temperature 97.3 F 09/27/23 09:41 Pulse Rate 59 09/27/23 09:41 Respiratory Rate 16 09/27/23 09:41 Blood Pressure 161/75 H 09/27/23 09:41 Pulse Oximetry 96 09/27/23 09:41 Oxygen Delivery Method Room Air 09/27/23 09:41 Airway Mallampati Class: II TM Dist: <=3cm Neck ROM: Full Loose/Missing/Broken Teeth: No Heart: S1S2 Lungs: CTAB Assessment and Plan Final Anesthetic Review Family History of Problems with Anesthesia: No History of Problems with Anesthesia: No NPO: Yes ASA Class: II Final Preanesthetic Review: No Changes in Pt Med Stat, Meds/Allgs Chart Reviewed, Consent Obtained/Reviewed and Anes Risks/Benef Reviewed Patient Risk: Low Procedure Risk: Low Anesthetic Plan Anesthetic Plan: MAC: and Agree w/ Assess. and Plan Disposition: Standard PACU
[2023-09-27 11:34] VITALS: BP 117/43; PULSE 59; RESP 12; TEMP 36.1; O2SAT 94
--- NOTE | 2023-09-27 11:47 | P.OP_ITS ---
Operative Note Operative Note Date of Service: 09/27/23 Narrative: Preoperative diagnosis: [] Large right inguinal hernia Postop diagnosis: [] Same Procedure [] open right inguinal herniorrhaphy with Bard mesh Surgeon: [] Dean Continuity Manager: [] Anushka Type of Anesthesia: [] MAC Indication for surgery: [] Very large indirect right inguinal hernia. No direct hernia demonstrated. Findings: [] Patient brought to the operating room, placed on operative table supine position, after adequate level of MAC anesthesia was induced, patient underwent ilioinguinal block with 0.5% Marcaine/1% lidocaine as well as infiltration of the incision site with the same and a small right aiden inguinal incision was made and carried down through skin, subcutaneous tissue, Katelin's fascia. External oblique fibers were opened direction with care to isolate and preserve the ilioinguinal nerve throughout the procedure. Spermatic cord was identified and retracted from the field. No direct hernia was demonstrated. Very large indirect hernia sac was from the spermatic cord and reduced. An extra-large plug was placed in this defect and was sutured inferiorly to the inguinal ligament, and superiorly to the transversalis fascia using interrupted 0 Ethibond suture. At completion, internal ring admitted 1 fingertip. Wound was irrigated, secured hemostasis. The wound Was closed in the following manner; external oblique fascia was closed using running 2-0 Vicryl suture. S carpa's fascia was reapproximated using 3-0 Vicryl suture. Interrupted inverted deep dermal 3-0 Vicryl sutures followed by running subcuticular 4-0 Vicryl suture placed. Steri-Strips and sterile dressings were applied. Wound was infiltrated 0.5% Marcaine/1% like can completion. Ipsilateral testicle was intrascrotal at completion. Sponge, needle, and instrument counts reported correct. Patient tolerated the procedure well and emerged anesthesia stable condition. EBL minimal
[2023-09-27 11:49] VITALS: BP 102/54; PULSE 54; RESP 12; O2SAT 98
[2023-09-27 12:04] VITALS: BP 110/64; PULSE 53; RESP 16; TEMP 36.1; O2SAT 97
== END 2023-09-27 12:43 | disposition home or self-care (01) ==
PROVIDERS: PCP Internal Medicine; Visit Provider Surgery
PROC: (CPT 49505; principal; 2023-09-27 10:40)
DX: K40.90 Unilateral inguinal hernia, without obstruction or gangrene, not specified as recurrent (principal); D17.6 Benign lipomatous neoplasm of spermatic cord; I10 Essential (primary) hypertension; E78.00 Pure hypercholesterolemia, unspecified; H54.8 Legal blindness, as defined in USA; Z79.82 Long term (current) use of aspirin; Z79.899 Other long term (current) drug therapy; Z87.891 Personal history of nicotine dependence
CPT/HCPCS: 49505; 88304; C1781; J0131; J0690; J2704; J2795; J3010

== ENCOUNTER → 2023-09-27 08:22 | Outpatient (BNV) | payer OTHER, SELFPAY | PROVIDERS: PCP Internal Medicine; Visit Provider Surgery | DX: K40.30 Unilateral inguinal hernia, with obstruction, without gangrene, not specified as recurrent (principal) | CPT/HCPCS: 49505 ==

== ENCOUNTER 2023-10-08 09:51 | Outpatient (AMB) | payer OTHER, SELFPAY ==
[2023-10-08 09:58] VITALS: BP 169/74; PULSE 56
--- NOTE | 2023-10-08 09:58 | MHC.OFFVIS ---
Intake Vital Signs 10/08/23 09:58 Weight 166 lb BP 169/74 H Blood Pressure Location Rt brachial Position Sitting Pulse 56 Intake Visit Reasons: S/P RIH repair w/mesh Intake Note: Patient here s/p RIH repair w/mesh. Patient reports incision healing well. Denies oozing or pain. 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 He has minimal incisional discomfort. He is tolerating his diet. He is having regular bowel habits. He is ambulating with no difficulty. [facility] Medical History Urinary frequency Macular degeneration Legally blind Arrhythmia Elevated cholesterol HTN (hypertension) Surgical History Incarcerated right inguinal hernia (09/27/23) H/O colonoscopy Family History Father No problems noted. Mother No problems noted. Social History Are you a primary career and guidance counselor to a significant other at home: No Do you presently have visiting nurse or other home services: No Alcohol intake: never Comment: COUNTS CORRECT Patient Tobacco Use Status: Former Tobacco user Physical Exam Vital Signs: Last Vital Signs Pulse 56 10/08/23 09:58 BP 169/74 H 10/08/23 09:58 GI Other: Abdomen soft. Wound clean dry and intact healing uneventfully. Assessment & Plan Assessment & Plan (1) Incarcerated right inguinal hernia: Onset Date: 09/27/23 Comment: RIH W/mesh Tyler Banks Code(s): K40.30 - Unilateral inguinal hernia, with obstruction, without gangrene, not specified as recurrent Plan Patient has been given local instructions and will follow-up p.r.n.. All questions answered. Coding Level of Care Code Global (39089) Diagnoses Incarcerated right inguinal hernia K40.30
== END 2023-10-08 10:08 | disposition home or self-care (01) ==
PROVIDERS: PCP Internal Medicine; Visit Provider Surgery
DX: K40.30 Unilateral inguinal hernia, with obstruction, without gangrene, not specified as recurrent (principal)
CPT/HCPCS: 99024

== ENCOUNTER → 2023-10-08 09:51 | Outpatient (BNVA) | payer OTHER, SELFPAY | PROVIDERS: PCP Internal Medicine; Visit Provider Surgery ==

== ENCOUNTER 2023-11-04 13:18 | Outpatient (AMB) | payer OTHER, SELFPAY ==
[2023-11-04 13:30] VITALS: BP 160/82; PULSE 54; BMI 24.3
--- NOTE | 2023-11-04 13:30 | MHC.OFFVIS ---
Intake Vital Signs 11/04/23 13:30 Height 5 ft 8 in Weight 160 lb 0.889 oz BMI 24.3 BP 160/82 H Blood Pressure Location Lt brachial Position Sitting Pulse 54 Intake Visit Reasons: 1Y follow up Intake Note: 1 year follow up w. 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 Vague history of SVT from many years ago but no clear documentation. He is legally blind. Overall, he is doing good. No specific cardiac symptoms. [facility] Medical History Urinary frequency Macular degeneration Legally blind Arrhythmia Elevated cholesterol HTN (hypertension) Surgical History Incarcerated right inguinal hernia (09/27/23) H/O colonoscopy Family History Father No problems noted. Mother No problems noted. Social History Are you a primary care analyst to a significant other at home: No Do you presently have visiting nurse or other home services: No Alcohol intake: never Comment: COUNTS CORRECT Patient Tobacco Use Status: Former Tobacco user Review of Systems Const Denies weakness ENT Denies dizziness Card Denies chest pain, Denies chest pain with activity, Denies syncope, Denies rapid heart rate, Denies pedal edema, Denies edema, Denies leg edema, Denies lightheadedness, Denies palpitations, Denies dyspnea, Denies dyspnea on exertion and Denies orthopnea Resp Denies cough, Denies dyspnea and Denies dyspnea on exertion GI Denies hematochezia and Denies change in stool character Musc Denies abnormal gait, Denies muscle cramps, Denies muscle weakness, Denies numbness, Denies radiating pain into limb and Denies tingling Neuro Denies abnormal gait, Denies dizziness, Denies syncope, Denies numbness, Denies tingling and Denies weakness Endo Denies palpitations Physical Exam Vital Signs: Last Vital Signs Pulse 54 11/04/23 13:30 BP 160/82 H 11/04/23 13:30 BMI result Body Mass Index 24.3 Const General: comfortable and no acute distress Orientation/consciousness: patient oriented x3 HEENT Other: Unremarkable Head: Yes normal to inspection Neck Neck: Yes normal visual inspection Chest Chest palpation & inspection: normal inspection of the chest Resp Auscultation: clear to auscultation bilaterally Cardio Palpation: normal PMI Heart sounds: S1 normal heart sound present, S2 normal heart sound present, no gallops, no murmurs and no rubs GI Palpation (GI): Soft to palpation Back/Spine/Pelvis Other: unremarkable Skin General skin exam: no rashes or lesions noted Neuro General: patient oriented x3 Extrem General: Yes normal to inspection Psych Mental Status: mental status grossly normal Office Procedures EKG Details: EKG with sinus bradycardia at 54/Min; no significant ST-T changes and otherwise unremarkable. [place]. [address]-[id number], Complete Assessment & Plan Assessment & Plan (1) Essential hypertension: Code(s): I10 - Essential (primary) hypertension Plan: Blood pressure was checked twice today and it is still on the higher side. Meds listed to be atenolol 50 mg daily, lisinopril 30 mg daily. As he is legally blind, doubt he can do home readings. Potassium is already on the higher side and hence probably not increase the lisinopril. We can add amlodipine 5 mg daily. Discussed today. (2) PVC (premature ventricular contraction): Code(s): I49.3 - Ventricular premature depolarization Plan: Echocardiogram shows LVEF 60-65%. Mild mitral and aortic regurgitation mild left atrial enlargement. Myocardial perfusion imaging study shows likely normal perfusion. In the Holter, underlying sinus rhythm at 60/Min. Frequent PVCs with a burden of 10%. Some PACs. There is a tendency for bradycardia. Continue atenolol. Otherwise, no specific need for antiarrhythmic medications at this time. He does not really have any overt symptoms from this. Medications: New amlodipine 5 mg PO DAILY 90 tabs 3RF Coding Level of Care Code Est Pt Level 3 (53534) Diagnoses Essential hypertension I10 PVC (premature ventricular contraction) I49.3 CPT Codes EKG - CPT: 26998-[id number], Complete ([id number])
== END 2023-11-04 14:17 | disposition home or self-care (01) ==
PROVIDERS: Visit Provider Internal Medicine
DX: I10 Essential (primary) hypertension (principal); I49.3 Ventricular premature depolarization
CPT/HCPCS: 93010; 99213

== ENCOUNTER → 2023-11-04 13:18 | Outpatient (BNVA) | payer OTHER, SELFPAY | PROVIDERS: Visit Provider Internal Medicine | DX: I10 Essential (primary) hypertension (principal); I49.3 Ventricular premature depolarization; Z79.899 Other long term (current) drug therapy | CPT/HCPCS: 93005 ==

== ENCOUNTER 2024-06-18 10:44 | Outpatient (AMB) | payer OTHER, SELFPAY ==
--- NOTE | 2024-06-18 11:08 | MHC.OFFWIV ---
Intake Vital Signs 06/18/24 11:09 06/18/24 12:00 06/18/24 12:00 Height 5 ft 8 in Weight 175 lb BMI 26.6 BP 126/64 158/80 H 158/80 H Blood Pressure Location Lt brachial Position Sitting Sitting Standing Pulse 60 Pulse Source Pulse Oximeter Pulse Oximetry (%) 98 Oxygen Delivery Method Room Air Intake Visit Reasons: EP-Dizziness Intake Note: Patient here for dizziness that started yesterday. Patient Tobacco Use Status: Former Tobacco user Allergies No Known Allergies Allergy (Verified 06/18/24 11:10) Do you need a note to return to daycare/school/sports/work: No HPI EP-Dizziness HPI Details This note is constructed using voice recognition software. 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 The patient is a 73 year old male who presents to the clinic today with dizziness starting yesterday on standing. He denies fever, chills, cough, shortness of breath, ear pain, chest pain, palpitations. He reports that he had vertigo back in the 80s when he had a viral illness. He has had no medication changes, is eating and drinking well. He has not had any head trauma. [facility] Medical History Urinary frequency Macular degeneration Legally blind Arrhythmia Elevated cholesterol HTN (hypertension) Surgical History Incarcerated right inguinal hernia (09/27/23) H/O colonoscopy Family History Father No problems noted. Mother No problems noted. Social History Are you a primary manager care management to a significant other at home: No Do you presently have visiting nurse or other home services: No Alcohol intake: never Comment: COUNTS CORRECT Patient Tobacco Use Status: Former Tobacco user Review of Systems Const All systems reviewed & are unremarkable except as noted in HPI and below Physical Exam Vital Signs: Last Vital Signs Pulse 60 06/18/24 11:09 BP 126/64 06/18/24 11:09 Pulse Ox 98 06/18/24 11:09 Oxygen Delivery Method Room Air 06/18/24 11:09 BMI result Body Mass Index 26.6 Const General: cooperative, healthy appearing, comfortable and no acute distress Orientation/consciousness: patient oriented x3 HEENT Head: Yes normal to inspection and Yes normocephalic Ears: EAC's normal, mastoids normal and unable to visualize TM (cerumen impaction) bilaterally General nose exam: Normal external nose present Face and sinus: Yes normal facial exam Resp Effort & Inspection: normal respiratory effort and able to speak in complete sentences Neuro Other: Horizontal nystagnus present General: patient oriented x3 and CN's II-XI intact bilaterally Office Procedures Cerumen Removal From which ear canal was the cerumen removed: bilateral Removal: irrigation Notes: patient tolerated procedure well, no complications and ear canal clear [id number] Irrigation/Lavage Assessment & Plan Assessment & Plan (1) BPPV (benign paroxysmal positional vertigo): Code(s): H81.10 - Benign paroxysmal vertigo, unspecified ear Qualifiers: Laterality: unspecified laterality Qualified Code(s): H81.10 - Benign paroxysmal vertigo, unspecified ear Plan: Reassuring physical examination, patient is not orthostatic, no concerns for cardiac contribution. We will try a short treatment with as needed meclizine for symptomatic management. Advised patient to follow up with worsening or failure to resolve. Advised emergency evaluation should he develop dizziness that does not resolve, is constant, involves headaches, confusion, chest pain, palpitations. (2) Impacted cerumen of both ears: Code(s): H61.23 - Impacted cerumen, bilateral Plan: In office irrigation successful. No signs of infection present on re-evaluation. Advised use of Debrox as needed for symptomatic management. Plan See above for full details and plan. Medications: New meclizine 12.5 mg PO TID PRN 10 tabs 0RF dizziness Coding Level of Care Code Est Pt Level 4 (75247) Diagnoses Benign paroxysmal positional vertigo, unspecified laterality H81.10 Laterality: unspecified laterality Impacted cerumen of both ears H61.23 CPT Codes Office Procedure - CPT: 49751-Jqt Irrigation/Lavage ([id number])
[2024-06-18 11:09] VITALS: BP 126/64; PULSE 60; O2SAT 98; BMI 26.6
[2024-06-18 12:00] VITALS: BP 158/80
== END 2024-06-18 12:10 | disposition home or self-care (01) ==
PROVIDERS: PCP Internal Medicine; Visit Provider Registered Nurse
DX: H81.13 Benign paroxysmal vertigo, bilateral (principal); H61.23 Impacted cerumen, bilateral
CPT/HCPCS: 69209; 99214

== ENCOUNTER 2024-11-04 13:07 | Outpatient (AMB) | payer OTHER, SELFPAY ==
--- NOTE | 2024-11-04 13:17 | MHC.OFFVIS ---
Vital Signs 11/04/24 13:18 Height 5 ft 8 in Weight 176 lb 5.917 oz BMI 26.8 BP 124/68 Blood Pressure Location Lt brachial Position Sitting Pulse 56 Pulse Source Monitor Intake Visit Reasons: 1 yr /fup Allergies No Known Allergies Allergy (Verified 06/18/24 11:10) Medication List - Last Reconciled 11/04/24 by Hector Trejo MD amlodipine 5 mg PO DAILY aspirin 81 mg PO DAILY atenolol 50 mg PO BEDTIME lisinopril 30 mg PO DAILY meclizine 12.5 mg PO TID PRN [id number] mcg (Centrum Silver Men) 1 tab PO DAILY pravastatin 20 mg PO BEDTIME HPI Comments Details: Fortino is here for follow up regarding PVCs and hypertension. Vague history of SVT from many years ago but no clear documentation. He is legally blind. Since last seen, no cardiac symptoms. [facility] Medical History Urinary frequency Macular degeneration Legally blind Arrhythmia Elevated cholesterol HTN (hypertension) Surgical History Incarcerated right inguinal hernia (09/27/23) H/O colonoscopy Family History Father No problems noted. Mother No problems noted. Social History Are you a primary animal care service worker to a significant other at home: No Do you presently have visiting nurse or other home services: No Alcohol intake: never Comment: COUNTS CORRECT Patient Tobacco Use Status: Former Tobacco user Review of Systems Const Denies weakness ENT Denies dizziness Card Denies chest pain, Denies chest pain with activity, Denies syncope, Denies rapid heart rate, Denies pedal edema, Denies edema, Denies leg edema, Denies lightheadedness, Denies palpitations, Denies dyspnea, Denies dyspnea on exertion and Denies orthopnea Resp Denies cough, Denies dyspnea and Denies dyspnea on exertion GI Denies hematochezia and Denies change in stool character Musc Denies abnormal gait, Denies muscle cramps, Denies muscle weakness, Denies numbness, Denies radiating pain into limb and Denies tingling Neuro Denies abnormal gait, Denies dizziness, Denies syncope, Denies numbness, Denies tingling and Denies weakness Endo Denies palpitations Physical Exam Vital Signs: Last Vital Signs Pulse 56 11/04/24 13:18 BP 124/68 11/04/24 13:18 BMI result Body Mass Index 26.8 Const General: comfortable and no acute distress Orientation/consciousness: patient oriented x3 HEENT Other: Unremarkable Head: Yes normal to inspection Neck Neck: Yes normal visual inspection Chest Chest palpation & inspection: normal inspection of the chest Resp Auscultation: clear to auscultation bilaterally Cardio Palpation: normal PMI Heart sounds: S1 normal heart sound present, S2 normal heart sound present, no gallops, no murmurs and no rubs GI Palpation (GI): Soft to palpation Back/Spine/Pelvis Other: unremarkable Skin General skin exam: no rashes or lesions noted Neuro General: patient oriented x3 Extrem General: Yes normal to inspection Psych Mental Status: mental status grossly normal Office Procedures EKG Details: EKG with sinus bradycardia at 56/Min; no significant ST-T changes and otherwise unremarkable[place] [id number], Complete Assessment & Plan Assessment & Plan (1) Essential hypertension: Code(s): I10 - Essential (primary) hypertension Category: Medical Plan: Stable on current meds. Listed to be on amlodipine, lisinopril, atenolol. No changes. (2) PVC (premature ventricular contraction): Code(s): I49.3 - Ventricular premature depolarization Category: Medical Plan: Echocardiogram shows LVEF 60-65%. Mild mitral and aortic regurgitation mild left atrial enlargement. Myocardial perfusion imaging study shows likely normal perfusion. In the Holter, underlying sinus rhythm at 60/Min. Frequent PVCs with a burden of 10%. Some PACs. There is a tendency for bradycardia. Continue atenolol. Otherwise, no specific need for antiarrhythmic medications at this time. Clinically, no symptoms. Coding Level of Care Code Est Pt Level 4 (56404) Diagnoses Essential hypertension I10 PVC (premature ventricular contraction) I49.3 CPT Codes EKG - CPT: 87807-[id number], Complete ([id number])
[2024-11-04 13:18] VITALS: BP 124/68; PULSE 56; BMI 26.8
== END 2024-11-04 13:36 | disposition home or self-care (01) ==
PROVIDERS: PCP Internal Medicine; Visit Provider Internal Medicine
DX: I10 Essential (primary) hypertension (principal); I49.3 Ventricular premature depolarization
CPT/HCPCS: 93010; 99214

== ENCOUNTER → 2024-11-04 13:07 | Outpatient (BNVA) | payer OTHER, SELFPAY | PROVIDERS: PCP Internal Medicine; Visit Provider Internal Medicine | DX: I10 Essential (primary) hypertension (principal); I49.3 Ventricular premature depolarization; Z79.899 Other long term (current) drug therapy | CPT/HCPCS: 93005 ==

== ENCOUNTER 2025-03-03 09:32 | Outpatient (REF) | payer OTHER, SELFPAY ==
[2025-03-03 13:58] LABS: Hematocrit 39.5 % (42.0-52.0); Mean Corpuscular HGB Conc 32.9 g/dl (31.0-36.0); Mean Corpuscular Hemoglobin 33.6 pg (27.0-33.0); Mean Corpuscular Volume 102.1 fL (80.0-98.0); Mean Platelet Volume 11.6 fL (9.4-12.4); Platelet Count 192 X10*3/uL (160-400); Red Blood Count 3.87 X10*6/uL (4.60-5.80); Red Cell Distribution Width 12.3 % (11.0-16.0); White Blood Count 5.1 X10*3/uL (4.8-10.8)
[2025-03-03 14:03] LABS: Appearance Urine Clear; Color Urine Yellow; Glucose Urine UA Negative (Negative); Leukocyte Esterase Urine Trace (Negative); Nitrite Urine Negative (Negative); PH 5.5 (5.0-9.0); Specific Gravity - Urine 1.015 (1.005-1.025); UMIC TRIGGER UA YES; Urine Blood Negative (Negative); Urine Ketones Trace mg/dL (Negative); Urine Protein Negative (Neg-Trace)
[2025-03-03 14:08] LABS: Alanine Aminotransferase 19 U/L (0-40); Albumin Level 4.6 g/dL (3.5-5.0); Anion Gap 12 (12-20); Aspartate Amino Transferase 29 U/L (5-37); Bilirubin Direct 0.2 mg/dL (0.0-0.5); Bilirubin Total 0.7 mg/dL (0.0-1.0); Blood Urea Nitrogen 19 mg/dL (9-16); Calcium 9.5 mg/dL (8.4-10.2); Carbon Dioxide 26 mmol/L (22-29); Chloride 107 mmol/L (96-108); Cholesterol 185 mg/dL (<200); Estimated Glomerular Filt Rate 54; Glucose Random 95 mg/dL (60-115); HDL Cholesterol 49 mg/dL (>40); LDL Cholesterol Calculated 119 mg/dL (<100); Potassium 5.3 mmol/L (3.3-5.1); Sodium 140 mmol/L (135-145); Total Protein 7.5 g/dL (6.5-8.0); Triglycerides 86 mg/dL (<150)
[2025-03-03 14:10] LABS: Bacteria Urine None Seen (None Seen); Hyaline Casts Urine 0-2 /LPF (0-2); RBC Urine 0-2 /HPF (0-2); Squamous Epithelial Cell Urine 0-2 /HPF (0-2); WBC Urine 0-5 /HPF (0-5)
[2025-03-03 14:24] LABS: Prostate Specific Antigen Scr 0.67 ng/mL (<0.05-4.0)
[2025-03-03 14:30] LABS: Alkaline Phosphatase 83 U/L (39-117)
[2025-03-03 14:35] LABS: Thyroid Stimulating Hormone 1.84 uIU/mL (0.32-4.0)
== END 2025-03-03 09:33 | disposition home or self-care (01) ==
LOC: HO.HMGCLDS 09:32
PROVIDERS: PCP Internal Medicine; Visit Provider Internal Medicine
DX: Z12.5 Encounter for screening for malignant neoplasm of prostate (principal); I10 Essential (primary) hypertension
CPT/HCPCS: 36415; 80048; 80061; 80076; 81001; 81003; 84153; 84443; 85027

== ENCOUNTER 2025-03-09 14:24 | Outpatient (AMB) | payer OTHER, SELFPAY ==
[2025-03-09 14:33] VITALS: BP 147/68; PULSE 60; RESP 14; TEMP 36.4; O2SAT 97; BMI 26.8
--- NOTE | 2025-03-09 14:33 | A.OFFPC_ITS ---
Vital Signs 03/09/25 14:33 Height 5 ft 8 in Weight 176 lb BMI 26.8 BP 147/68 H Respiration 14 Pulse 60 Pulse Source Pulse Oximeter Temp 97.6 F Temp Source Temporal Artery Scan Pulse Oximetry (%) 97 Oxygen Delivery Method Room Air Intake Visit Reasons: physical Beauty Culturist Required: No Accompanied by: Self / Same As Patient Allergies No Known Allergies Allergy (Verified 03/09/25 14:33) Tobacco use date assessed: 03/09/25 Fall risk assessment: No Falls in past year Last assessed Fall Risk: 03/09/25 Dental Screening Dental Screen Date: 03/09/25 Did you have a dental visit in the last 12 months?: Yes Did you have a dental problem in the last 6 months where you did not have access to dental care?: No Was dental information given to patient?: Patient has dentist [facility] Medical History (Updated 03/09/25 @ 15:22 by Bradford Dixon MD) Macrocytic anemia Urinary frequency Macular degeneration Legally blind Arrhythmia Elevated cholesterol HTN (hypertension) Surgical History Incarcerated right inguinal hernia (09/27/23) H/O colonoscopy (~11/28/20) Family History (Updated 03/09/25 @ 14:41 by MARJ Gonzalez) Father No problems noted. Mother Heart problem Alcohol abuse Social History (Updated 03/09/25 @ 14:42 by MARJ Gonzalez) Housing: Apartment Are you a primary healthcare technician to a significant other at home: No Do you presently have visiting nurse or other home services: No Alcohol intake: current Alcohol intake frequency: holidays/special occasions only Patient Tobacco Use Status: Former Tobacco user service: No Current occupational status: retired Cognitive needs: No Hearing needs: No Vision needs: Yes (legally blind - does not wear glasses ) Questionnaire PHQ-9 Over the last 2 weeks, how often have you been bothered by any of the following problems? 1. Little interest or pleasure in doing things: not at all 2. Feeling down, depressed, or hopeless: not at all 3. Trouble falling or staying asleep, or sleeping too much: not at all 4. Feeling tired or having little energy: not at all 5. Poor appetite or overeating: not at all 6. Feeling bad about yourself - or that you are a failure or have let yourself or your family down: not at all 7. Trouble concentrating on things, such as reading the newspaper or watching television: not at all 8. Moving or speaking so slowly that other people could have noticed. Or the opposite - being so fidgety or restless that you have been moving around a lot more than usual: not at all 9. Thoughts that you would be better off or of hurting yourself in some way: not at all Total score: 0 Source: Developed by Drs. Marques Glynn, Nancy Snyder, Keenan Marte and colleagues, with an educational fay from [employer]. Thrive Questionnaire Date Thrive assessed: 03/09/25 I am a: Patient What is your living situation today?: I have a steady place to live Within the past 12 months, did the food you bought not last and you didn't have the money to get more?: Never true Within the past 12 months, did you worry whether your food would run out before you got money to buy more?: Never true Do you have trouble paying for medicines?: No Do you have trouble getting transportation to medical appointments?: No Do you have trouble paying your heating and electricity bill?: No Do you have trouble taking care of your child, family member or friend?: No Do you have trouble with day-to-day activities such as bathing, preparing meals, shopping, managing finances, etc.?: No Are you currently unemployed and looking for a job?: No Are you interested in more education?: No Please select the resources that you would like help with: None THRIVE Score: 0 AUDIT C Alcohol Use Questionnaire (AUDIT-C) 1. How often do you have a drink containing alcohol?: Monthly or less 2. How many drinks containing alcohol do you have on a typical day when you are drinking?: 1 or 2 3. How often do you have six or more drinks on one occasion?: Never Total Score: 1 DARWIN-7 AMB Questionnaire DARWIN-7 Date DARWIN - 7 assessed: 03/09/25 Feeling nervous, anxious, or on edge: 0 = Not at all Not being able to stop or control worryin = Not at all Worrying too much about different things: 0 = Not at all Trouble relaxin = Not at all Being so restless that it is hard to sit still: 0 = Not at all Becoming easily annoyed or irritable: 0 = Not at all Feeling afraid as if something awful might happen: 0 = Not at all Total DARWIN-7 score (0-4 normal; 5-9 mild; 10-14 moderate; 15-21 severe): 0 Source: Developed by Drs. Marques Glynn, Nancy Snyder, Keenan Marte and colleagues, with an educational fay from [employer]. Physical exam (Primary Care) Vital Signs: Last Vital Signs Temp 97.6 F 03/09/25 14:33 Pulse 60 03/09/25 14:33 Resp 14 03/09/25 14:33 BP 147/68 H 03/09/25 14:33 Pulse Ox 97 03/09/25 14:33 Oxygen Delivery Method Room Air 03/09/25 14:33 BMI result Body Mass Index 26.8 Tobacco/Smoking Status: Tobacco use Status Tobacco use date assessed 03/09/25 03/09/25 14:34 Patient Tobacco Use Status Former Tobacco user 03/09/25 14:42 PHQ-9: PHQ-9 Score PHQ-9: Total score 0 03/09/25 14:34 Thrive Assessment: Date of Thrive Assessment Date Thrive assessed 03/09/25 03/09/25 14:34 Coding Level of Care Code New Pt Level 4 (27660) Complex EM visit Add On G2211 Diagnoses Macrocytic anemia D53.9 Assessment & Plan Assessment & Plan (1) Macrocytic anemia: Code(s): D53.9 - Nutritional anemia, unspecified Category: Medical Plan: B12 and folate levels ordered. Plan History of Present Illness The patient is a 74-year-old male presenting with concerns about a skin lesion and frequent urination. Approximately one month ago, he noticed the appearance of a lesion on his skin, a new occurrence for him that has led to concern, querying the necessity of a biopsy. He has also reported experiencing frequent urination, which he understands to be common for men of similar age. Notably, the patient has been legally blind since childhood but manages daily activities utilizing assistive devices such as a magnifying glass and an herbie [employer]onic magnifying tool. 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 He prefers reading books with assistance from electronic devices and does not watch television or use the internet; instead, he relies on radio for news. 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 - Vision impairment: Legally blind since childhood; uses magnifying devices. - No television or internet use; gathers news via radio. - Prefers reading books using electronic magnification devices. - Has not used computers and has shunned television for many years. Review of Systems - Dermatologic: Reports a skin lesion present for approximately one month. - Genitourinary: Reports frequent urination. - Ophthalmologic: Legally blind since childhood. - Other systems: Denies additional symptoms or concerns discussed. Physical Exam General: Cooperative and healthy appearing Nutritional Appearance: Well nourished Orientation/consciousness: Patient oriented x3 Limitations: No limitations Head: Normal to inspection General: Appearance normal, both eyes and all related structures Neck: Normal visual inspection Chest: Normal palpation of entire chest wall Respiratory: N ormal respiratory effort Neurology: Patient oriented x3, legally blind in both eyes since childhood. Results Plan 1. Skin Lesion - Arrange for a surgical consultation for removal and biopsy of lesion in- office. 2. Frequent Urination - Evaluate recent blood work for diabetes screening. Discussion Notes I discussed with the patient that the skin lesion should be excised surgically, and a biopsy will be performed to determine the nature of the lesion. We addressed concerns about his frequent urination and plan to evaluate recent blood work to rule out potential causes. I explained the importance of these steps in managing his current health concerns. I assured him that proceeding with these evaluations will help ensure appropriate care. The patient appeared understanding of the plan and is agreeable to follow up as required upon obtaining the lab results and surgical consultation. Patient Instructions - Follow up with a surgeon for the removal and biopsy of the skin lesion. - Monitor for any changes in urination and report if symptoms worsen. - Await a call regarding blood test results and subsequent instructions.
== END 2025-03-09 15:22 | disposition home or self-care (01) ==
LOC: HO.HMCSH 14:24
PROVIDERS: PCP Internal Medicine; Visit Provider Internal Medicine
DX: D53.9 Nutritional anemia, unspecified (principal)

== ENCOUNTER → 2025-03-09 14:24 | Outpatient (BNVA) | payer OTHER, SELFPAY | PROVIDERS: PCP Internal Medicine; Visit Provider Internal Medicine | DX: Z13.89 Encounter for screening for other disorder (principal) ==

== ENCOUNTER 2025-07-30 00:23 | Emergency (ER) | payer OTHER, SELFPAY ==
--- NOTE | 2025-07-30 | ECG_ITS ---
Test Reason : PALPITATIONS Blood Pressure : */* mmHG Vent. Rate : 70 BPM Atrial Rate : 70 BPM P-R Int : 172 ms QRS Dur : 92 ms QT Int : 418 ms P-R-T Axes : 62 32 41 degrees QTcB Int : 451 ms Sinus rhythm with occasional Premature atrial complexes with intermittent aberrant ventricular conduction Otherwise normal ECG When compared with ECG of 02-Apr-2022 20:58, No significant change was found Referred By: Generic ED Physician Electronically Signed By: ESE DUGAN MD
[2025-07-30 00:31] VITALS: BP 181/84; BP 185/96; PULSE 68; PULSE 70; RESP 16; TEMP 36.7; O2SAT 98; O2SAT 99; BMI 26.7
[2025-07-30 00:43] VITALS: BP 181/84; PULSE 68; RESP 16; TEMP 36.7; O2SAT 98
--- NOTE | 2025-07-30 00:57 | ED.ARRPALP ---
HPI - Arrhythmia/Palpitations General Chief Complaint: Arrhythmia/Palpitations Stated Complaint: ANXIOUS/ FEELS HEART ISNT BEATING REGULAR Time Seen by Provider: 07/30/25 00:28 Source: patient and old records reviewed Mode of arrival: ambulatory Limitations: no limitations History of Present Illness ED Provider: KEVIN NAPIER narrative: 74 yo male with PMH of HTN, PVCs, SVT maintained on atenolol, anemia, bradycardia here with c/o feeling his heart race he states it was too fast he would feel 4 beats then a stop. He denies dizziness, CP, dyspnea. He denies any recent infections. He is compliant with all medications. He notes this started yesterday afternoon. He states he has no pain but he has been urinating more. No dysuria. He states he is worried about the irregular pulse MD complaint: palpitations and irregular heart beat Onset (ago): day(s) (yesterday afternoon) Duration: intermittent Severity: mild Context: occurred during rest Arrhythmia history: SVT Associated symptoms: other (urinary frequency) Related Data Home Medications ?Medication ?Instructions ?Recorded ?Confirmed aspirin 81 mg tablet 81 mg PO DAILY 11/22/20 11/04/24 tztlgopb-qb-qdadp 300 mcg-K 60 1 tab PO DAILY 11/22/20 11/04/24 mcg-lycop 600 mcg-lutein 300 mcg tablet (Centrum Silver Men) Previous Rx's ?Medication ?Instructions ?Recorded amlodipine 5 mg tablet 5 mg PO DAILY #90 tabs 10/27/24 lisinopril 30 mg tablet 30 mg PO DAILY #90 tabs 03/24/25 pravastatin 20 mg tablet 20 mg PO BEDTIME #90 tabs 06/10/25 atenolol 50 mg tablet 50 mg PO BEDTIME #90 tabs 06/30/25 Allergies Allergy/AdvReac Type Severity Reaction Status Date / Time No Known Allergies Allergy Verified 07/30/25 00:43 Review of Systems Review of Systems: Constitutional : No Fever, No Chills, No Fatigue ENT/Mouth : No sore throat, No Rhinorrhea Eyes: No Eye Pain, No Swelling, No Redness Cardiovascular : No Chest Pain, No SOB, No Dyspnea on Exertion, pos palpitations Respiratory : No Cough, No Sputum Gastrointestinal : No Nausea, No Vomiting, No Diarrhea, No abdominal Pain Genitourinary : No Dysuria, pos Urinary Frequency, No Hematuria, Musculoskeletal : No joint pain, No Myalgias, No Joint Swelling Skin : No Skin Lesions, No rash Neuro : No Weakness, No Numbness, No Dizziness, no Headache All other systems reviewed and are negative [facility] Past Medical History Attestation statement: The following information was validated with the patient. Source: old records reviewed Medical History Macrocytic anemia Urinary frequency Macular degeneration Legally blind Arrhythmia Elevated cholesterol HTN (hypertension) Surgical History Incarcerated right inguinal hernia (09/27/23) H/O colonoscopy (~11/28/20) Family History Family History (Updated 03/09/25 @ 14:41 by MARJ Gonzalez) Father No problems noted. Mother Heart problem Alcohol abuse Social History Social History Housing: Apartment Are you a primary health care coordinator to a significant other at home: No Do you presently have visiting nurse or other home services: No Alcohol intake: current Alcohol intake frequency: holidays/special occasions only Patient Tobacco Use Status: Former Tobacco user Smoked in Last 30 Days: No Use of substances other than those prescribed or required for medical reasons: No service: No Current occupational status: retired Cognitive needs: No Hearing needs: No Vision needs: Yes (legally blind - does not wear glasses ) Physical Exam Vital Signs: Vital Signs: Last Vital Signs Temp 98.0 F 07/30/25 00:43 Pulse 57 07/30/25 01:50 Resp 12 07/30/25 01:50 BP 136/62 07/30/25 01:50 Pulse Ox 98 07/30/25 01:50 O2 Del Method Room Air 07/30/25 01:50 BMI result Body Mass Index 26.7 Appearance: Alert. Oriented X3. No acute distress. Eyes: Pupils equal, round and reactive to light. ENT: Pharynx normal. Neck: Normal inspection. Neck supple. CVS: Normal heart rate and rhythm. Pulses normal. Respiratory: No respiratory distress. Breath sounds normal. Abdomen: Soft and nontender. Skin: Skin warm and dry. Normal skin color. Normal skin turgor. Extremities: No lower extremity edema. No calf ttp Neuro: Oriented X 3. No motor deficit. No sensory deficit. CN2-12 intact Medical Decision Making Medical Decision Making [facility] Narrative: 74 yo male with PMH of HTN, PVCs, SVT maintained on atenolol, anemia, bradycardia here with c/o feeling irregular heart beat. He has no associated symptoms beyond urinary frequency at this time labs, lytes, EKG shows a PVC, he has no signs of ACS/VTE on exam and no CP/SOB. He will get UA and PVR bladder scan. He has no abdominal pain to suggest UTI/renal colic Differential Diagnosis Differential Diagnoses: The differential diagnosis associated with the presentation includes lyte abnormality, PVC, SVT, UTI Admission/Observation Consideration of admission/observation: Escalation of care including admission/observation considered labs reassuring VS stable PVC On EKG PVR only 73 and pre void was 214 no retention at this time stable for DC feels much better BP down and improved, he states he is very calm Lab Data [facility] Lab Attestation statement: I reviewed the patient's lab results. 07/30/25 00:55 07/30/25 00:55 Labs: Lab Results 07/30/25 Range/Units 00:55 WBC 7.2 (4.8-10.8) X10*3/uL RBC 4.00 L (4.60-5.80) X10*6/uL Hgb 13.3 L (14.0-18.0) g/dl Hct 39.2 L (42.0-52.0) % MCV 98.0 (80.0-98.0) fL MCH 33.3 H (27.0-33.0) pg MCHC 33.9 (31.0-36.0) g/dl RDW 12.2 (11.0-16.0) % Plt Count 160 (160-400) X10*3/uL MPV 10.6 (9.4-12.4) fL Immature Gran % (Auto) 0.4 (0.0-0.4) % Neut % (Auto) 73.2 H (45-73) % Lymph % (Auto) 17.2 L (20-40) % [place] % (Auto) 6.4 (2-11) % Eos % (Auto) 1.5 (0-4) % Baso % (Auto) 1.3 (0-2) % Lymph # (Auto) 1.2 (1.2-4.9) X10*3/uL [place] # (Auto) 0.5 (0.1-1.2) X10*3/uL Eos # (Auto) 0.1 (0.0-0.4) X10*3/uL Baso # (Auto) 0.1 (0.0-0.2) X10*3/uL Abs Immat Gran (auto) 0.03 (0.00-0.03) X10*3/uL Absolute Neuts (auto) 5.3 (2.0-8.3) x10*3/uL Absolute Nucleated RBC 0.000 (0.0-0.012) X10*3/uL Nucleated RBC % (auto) 0.0 (0.0-0.2) /100WBC Sodium 142 (135-145) mmol/L Potassium 4.2 D (3.3-5.1) mmol/L Chloride 111 H (96-108) mmol/L Carbon Dioxide 22 (22-29) mmol/L Anion Gap 13 (12-20) BUN 23 H (9-16) mg/dL Creatinine 1.14 (0.5-1.4) mg/dL Estim Creat Clear Calc 53.3 Estimated GFR > 60 Random Glucose 110 (60-115) mg/dL Calcium 9.4 (8.4-10.2) mg/dL Magnesium 2.3 (1.6-2.6) mg/dL Total Bilirubin 0.3 (0.0-1.0) mg/dL Direct Bilirubin 0.1 (0.0-0.5) mg/dL AST 28 (5-37) U/L ALT 24 (0-40) U/L Alkaline Phosphatase 92 (39-117) U/L Troponin I High Sens 4.2 (<3.5-35.0) ng/L Total Protein 7.7 (6.5-8.0) g/dL Albumin 4.9 (3.5-5.0) g/dL TSH 3.28 (0.32-4.0) uIU/mL Urine Color Yellow Urine Appearance Clear Urine pH 6.5 (5.0-9.0) Ur Specific [place] 1.010 (1.005-1.025) Urine Protein Negative (Neg-Trace) mg/dL Urine Glucose (UA) Negative (Negative) mg/dL Urine Ketones Negative (Negative) mg/dL Urine Blood Negative (Negative) Urine Nitrite Negative (Negative) Ur Leukocyte Esterase Negative (Negative) Independent Interpretation I performed an independent interpretation of an: EKG Interpretation: Rate: 70 Rhythm: NSR with 1 PVC [place]: normal Normal P waves. Normal CAMI. Normal QRS complex. ST T wave : normal no ODILON qTC: 451 prior studies: no acute ischemia The study has been interpreted contemporaneously by me. . Independent Historian Clinical information obtained from an independent historian. History obtained from or confirmed by: EMS External Record Review External record reviewed: Inpatient record and Outpatient record Discharge Plan Discharge Clinical Impression: PVC (premature ventricular contraction) Patient Disposition: Home, Self-Care Instructions: Premature Ventricular Contractions (ED) Additional Instructions: your urine has no infection you are not retaining urine your labs and electrolytes are normal and reassuring please call and follow up with your primary care doctor return for any worsening symptoms or concerns. Prescriptions: No Action amlodipine 5 mg tablet 5 mg PO DAILY Qty: 90 3RF lisinopril 30 mg tablet 30 mg PO DAILY Qty: 90 1RF pravastatin 20 mg tablet 20 mg PO BEDTIME Qty: 90 1RF atenolol 50 mg tablet 50 mg PO BEDTIME Qty: 90 1RF aspirin 81 mg Tablet 81 mg PO DAILY Centrum Silver Men 300-600-300 mcg Tablet 1 tab PO DAILY Print Language: Israeli
[2025-07-30 01:01] LABS: MANUAL DIFF FLAG NO
[2025-07-30 01:02] LABS: Hematocrit 39.2 % (42.0-52.0); Hemoglobin 13.3 g/dl (14.0-18.0); Imm Gran Abs Auto 0.03 X10*3/uL (0.00-0.03); Imm Gran Pct Auto 0.4 % (0.0-0.4); Lymphocytes Absolute Auto 1.2 X10*3/uL (1.2-4.9); Mean Corpuscular HGB Conc 33.9 g/dl (31.0-36.0); Mean Corpuscular Hemoglobin 33.3 pg (27.0-33.0); Mean Corpuscular Volume 98.0 fL (80.0-98.0); NRBC Abs Auto 0.000 X10*3/uL (0.0-0.012); NRBC Pct Auto 0.0 /100WBC (0.0-0.2); Platelet Count 160 X10*3/uL (160-400); Red Blood Count 4.00 X10*6/uL (4.60-5.80); White Blood Count 7.2 X10*3/uL (4.8-10.8)
[2025-07-30 01:20] LABS: Appearance Urine Clear; Glucose Urine UA Negative (Negative); PH 6.5 (5.0-9.0); Specific Gravity - Urine 1.010 (1.005-1.025)
[2025-07-30 01:21] LABS: Troponin-I High Sensitivity 4.2 ng/L (<3.5-35.0)
[2025-07-30 01:22] LABS: Alanine Aminotransferase 24 U/L (0-40); Albumin Level 4.9 g/dL (3.5-5.0); Alkaline Phosphatase 92 U/L (39-117); Anion Gap 13 (12-20); Aspartate Amino Transferase 28 U/L (5-37); Blood Urea Nitrogen 23 mg/dL (9-16); Calcium 9.4 mg/dL (8.4-10.2); Carbon Dioxide 22 mmol/L (22-29); Chloride 111 mmol/L (96-108); Creatinine Clr Calc Pharmacy 53.3; Estimated Glomerular Filt Rate > 60; Magnesium 2.3 mg/dL (1.6-2.6); Potassium 4.2 mmol/L (3.3-5.1); Sodium 142 mmol/L (135-145); Total Protein 7.7 g/dL (6.5-8.0)
[2025-07-30 01:50] VITALS: BP 136/62; PULSE 57; RESP 12; O2SAT 98
[2025-07-30 03:25] VITALS: BP 136/62; PULSE 57; RESP 12; TEMP 36.7; O2SAT 98
== END 2025-07-30 03:25 | disposition home or self-care (01) ==
PROVIDERS: Emergency Provider Emergency Medicine
DX: I49.3 Ventricular premature depolarization (principal); I49.9 Cardiac arrhythmia, unspecified; R00.2 Palpitations; R35.0 Frequency of micturition; Z79.899 Other long term (current) drug therapy; Z87.891 Personal history of nicotine dependence
CPT/HCPCS: 36415; 80048; 80076; 81003; 83735; 84443; 84484; 85025; 93005; 99283; 99284

== ENCOUNTER → 2025-07-30 00:30 | Outpatient (BNV) | payer OTHER, SELFPAY | PROVIDERS: Emergency Provider Emergency Medicine; Visit Provider Internal Medicine Cardiovascular Disease | DX: I48.91 Unspecified atrial fibrillation (principal) | CPT/HCPCS: 93010 ==

== ENCOUNTER 2025-09-14 10:19 | Outpatient (AMB) | payer OTHER, SELFPAY ==
[2025-09-14 10:23] VITALS: BP 115/58; PULSE 55; RESP 14; TEMP 36.3; O2SAT 98; BMI 27.2
--- NOTE | 2025-09-14 10:23 | MHC.PC.OV ---
Vital Signs 09/14/25 10:23 Height 5 ft 8 in Weight 179 lb BMI 27.2 BP 115/58 L Blood Pressure Location Rt brachial Position Sitting Respiration 14 Pulse 55 Pulse Source Pulse Oximeter Temp 97.4 F Temp Source Temporal Artery Scan Pulse Oximetry (%) 98 Oxygen Delivery Method Room Air Intake Visit Reasons: 6 month f/u Diagnostic Cardiac Sonographer Required: No Accompanied by: Self / Same As Patient Allergies No Known Allergies Allergy (Verified 09/14/25 10:23) Tobacco use date assessed: 03/09/25 Dental Screening Dental Screen Date: 03/09/25 HPI HPI Comments History of Present Illness Details History of Present Illness - The patient is a 74 year old individual presenting for a follow-up visit. - The patient reports an episode of rapid heart rate during the nighttime in July, which prompted a visit to the [facility] via ambulance. - During the hospital visit, the patient's blood pressure was checked, and an EKG and bladder scan were performed, with all results reported as normal. - The EKG showed sinus rhythm, and no new medications were prescribed. - The patient was discharged after approximately four hours and has been feeling well since the event. - The patient has a known history of premature ventricular contractions. - The patient's blood work from July 30 was normal. - Current medications include amlodipine 5 mg, aspirin 81 mg, atenolol 50 mg, lisinopril 30 mg, pravastatin, and a multivitamin, all taken once daily. - A colonoscopy was completed not long ago, and another is not currently due. - The patient has not received an influenza vaccine for many years. Social History - Living Situation: The patient lives alone. - Social Contact: The patient reports having very little contact with other people. - Transportation: The patient does not have a car and does not get around much. - Functional Status: The patient is ambulatory and walked to the clinic. - Nutrition: The patient reports eating at restaurants and does not do much grocery shopping but does go to a local [employer]. Results - Labs: Blood work performed on July 30 was normal. - Tests and Diagnostics: An EKG performed at [facility] in July showed sinus rhythm. - Tests and Diagnostics: A bladder scan performed in July was normal. FORMERLY [facility], [facility]1983 Medical History Macrocytic anemia Urinary frequency Macular degeneration Legally blind Arrhythmia Elevated cholesterol HTN (hypertension) Surgical History Incarcerated right inguinal hernia (09/27/23) H/O colonoscopy (~11/28/20) Family History Father No problems noted. Mother Heart problem Alcohol abuse Social History Housing: Apartment Are you a primary acute care nurse practitioner to a significant other at home: No Do you presently have visiting nurse or other home services: No Alcohol intake: current Alcohol intake frequency: holidays/special occasions only Patient Tobacco Use Status: Former Tobacco user service: No Current occupational status: retired Cognitive needs: No Hearing needs: No Vision needs: Yes (legally blind - does not wear glasses ) Questionnaire PHQ-9 Over the last 2 weeks, how often have you been bothered by any of the following problems? 1. Little interest or pleasure in doing things: not at all 2. Feeling down, depressed, or hopeless: not at all 3. Trouble falling or staying asleep, or sleeping too much: not at all 4. Feeling tired or having little energy: not at all 5. Poor appetite or overeating: not at all 6. Feeling bad about yourself - or that you are a failure or have let yourself or your family down: not at all 7. Trouble concentrating on things, such as reading the newspaper or watching television: not at all 8. Moving or speaking so slowly that other people could have noticed. Or the opposite - being so fidgety or restless that you have been moving around a lot more than usual: not at all 9. Thoughts that you would be better off or of hurting yourself in some way: not at all Total score: 0 Source: Developed by Drs. Marques Glynn, Nancy Snyder, Keenan Marte and colleagues, with an educational fay from [employer]. Thrive Questionnaire Date Thrive assessed: 03/09/25 I am a: Patient What is your living situation today?: I have a steady place to live Within the past 12 months, did the food you bought not last and you didn't have the money to get more?: Never true Within the past 12 months, did you worry whether your food would run out before you got money to buy more?: Never true Do you have trouble paying for medicines?: No Do you have trouble getting transportation to medical appointments?: No Do you have trouble paying your heating and electricity bill?: No Do you have trouble taking care of your child, family member or friend?: No Do you have trouble with day-to-day activities such as bathing, preparing meals, shopping, managing finances, etc.?: No Are you currently unemployed and looking for a job?: No Are you interested in more education?: No Please select the resources that you would like help with: None THRIVE Score: 0 AUDIT C Alcohol Use Questionnaire (AUDIT-C) 1. How often do you have a drink containing alcohol?: Monthly or less 2. How many drinks containing alcohol do you have on a typical day when you are drinking?: 1 or 2 3. How often do you have six or more drinks on one occasion?: Never Total Score: 1 DARWIN-7 AMB Questionnaire DARWIN-7 Date DARWIN - 7 assessed: 03/09/25 Feeling nervous, anxious, or on edge: 0 = Not at all Not being able to stop or control worryin = Not at all Worrying too much about different things: 0 = Not at all Trouble relaxin = Not at all Being so restless that it is hard to sit still: 0 = Not at all Becoming easily annoyed or irritable: 0 = Not at all Feeling afraid as if something awful might happen: 0 = Not at all Total DARWIN-7 score (0-4 normal; 5-9 mild; 10-14 moderate; 15-21 severe): 0 Source: Developed by Drs. Marques Glynn, Nancy Snyder, Keenan Marte and colleagues, with an educational fay from [employer]. Review of Systems Narrative Review of Systems - Cardiovascular: Reports a single, transient episode of palpitations in July and a history of premature ventricular contractions. Denies any current cardiac symptoms. - Constitutional: Reports otherwise feeling well. Physical exam (Primary Care) Vital Signs: Last Vital Signs Temp 97.4 F 09/14/25 10:23 Pulse 55 09/14/25 10:23 Resp 14 09/14/25 10:23 BP 115/58 L 09/14/25 10:23 Pulse Ox 98 09/14/25 10:23 Oxygen Delivery Method Room Air 09/14/25 10:23 BMI result Body Mass Index 27.2 Tobacco/Smoking Status: Tobacco use Status Tobacco use date assessed 03/09/25 09/14/25 10:24 Patient Tobacco Use Status Former Tobacco user 09/14/25 10:24 PHQ-9: PHQ-9 Score PHQ-9: Total score 0 09/14/25 10:57 Thrive Assessment: Date of Thrive Assessment Date Thrive assessed 03/09/25 09/14/25 10:24 Narrative Physical Exam General: Cooperative and healthy appearing Nutritional Appearance: Well nourished Orientation/consciousness: Patient oriented x3 Limitations: No limitations Head: Normal to inspection General: Appearance normal, both eyes and all related structures Neck: Normal visual inspection Chest: Normal palpation of entire chest wall Respiratory: Normal respiratory effort Neurology: Patient oriented x3 Office Procedures Flu Questionnaire Does the patient have a severe egg allergy?: No Does the patient have severe life threatening allergies?: No Does the patient have a fever or illness today?: No Has the patient ever had Guillain-[place] Syndrome?: No Has the patient ever had any past reaction to a flu shot?: No Immunizations Fluarix [id number] (PF) 45 mcg (15 mcg x 3)/0.5 mL IM syringe Performing Provider: Bradford Dixon MD [facility] [place] [facility] Documented (not given) by: MARJ Gonzalez on 09/14/25 10:57 Reason Not Given: Patient Refused Coding Level of Care Code Complex visit Add On G2211 Diagnoses Essential hypertension I10 Assessment & Plan Assessment & Plan (1) Essential hypertension: Code(s): I10 - Essential (primary) hypertension Category: Medical Plan Plan - Continue current medications, including amlodipine, aspirin, atenolol, lisinopril, and pravastatin. - Provide refills for medications as needed. - No additional lab work is required at this time. - The patient declines the influenza vaccine at present. - The patient will follow up in three months. Discussion Notes I reviewed the patient's recent visit to the emergency department in July for palpitations, noting the workup was reassuring and revealed sinus rhythm. We confirmed the current medication list and I agreed to provide refills when needed. I informed the patient that the blood work from July 30 was normal and no new labs are necessary at this time. We discussed the influenza vaccine, which the patient chose to defer. The patient's colonoscopy screening is up to date. I advised a follow-up appointment in three months. Patient Instructions - Continue taking all your current medications as prescribed. - You can request medication refills when you need them. - Your lab work from July was normal, so no new blood tests are needed at this time. - Please return for a follow-up visit in three months. Orders: Orders Influenza [id number] Immunization Today Z23 - Encounter for immunization
== END 2025-09-14 11:23 | disposition home or self-care (01) ==
LOC: HO.HMCSH 10:19
PROVIDERS: PCP Internal Medicine; Visit Provider Internal Medicine
DX: I10 Essential (primary) hypertension (principal); Z23 Encounter for immunization

== ENCOUNTER → 2025-09-14 10:19 | Outpatient (BNVA) | payer OTHER, SELFPAY | PROVIDERS: PCP Internal Medicine; Visit Provider Internal Medicine | DX: I10 Essential (primary) hypertension (principal); Z28.21 Immunization not carried out because of patient refusal | CPT/HCPCS: 90471; 96127 ==